=== PATIENT | male | born 1940 | race Caucasian/White ===

== ENCOUNTER → 2017-08-30 13:57 | Outpatient (CLI) | payer MEDICARE, OTHER, SELFPAY ==
[2017-08-30 15:43] LABS: Hematocrit 46.5 % (40-54); Hemoglobin 15.8 g/dl (13.0-16.5); Mean Corpuscular Volume 88.2 fL (80-94); Mean Platelet Vol. 10.4 fl (6.2-12.0); Platelet Count 167 K/mm3 (150-450); RBC Distribution Width CV 13.2 % (11.6-14.6); RBC Distribution Width SD 43.1 fl (35.1-43.9); Red Blood Count 5.27 M/mm3 (4.6-6.2); White Blood Count 5.6 K/mm3 (4.4-11.0)
[2017-08-30 16:00] LABS: ALB/GLOB Ratio 1.2 RATIO (0.9-2.4); AST(SGOT) 22 U/L (15-37); Alanine Aminotransfer ALT/SGPT 20 U/L (16-61); Albumin, Serum 3.8 g/dL (3.2-5.0); Alkaline Phosphatase 96 U/L (45-117); Anion Gap 6 (5-15); BUN 18 mg/dL (7-18); Calcium,Total 8.4 mg/dL (8.5-10.1); Chloride 106 mmol/L (98-107); EST Glomerular Filtration Rate 77 mL/min (>60); Est Glom Filt Rate - Afr Amer 93 mL/min (>60); Globulin 3.1 g/dL (2.2-4.2); Glucose 80 mg/dL (74-106); Magnesium 2.2 mg/dL (1.6-2.6); Potassium 4.3 mmol/L (3.5-5.1); Protein, Total 6.9 g/dL (6.4-8.2); Sodium Level 140 mmol/L (136-145); T4 Free Direct 0.98 ng/dL (0.76-1.46); Thyroid Stim Hormone (TSH) 5.96 uIU/mL (0.358-3.74)
[2017-08-30 16:31] LABS: Scan Indicated on CBC? Y/N NO
== END ==
PROVIDERS: Family Provider Family Medicine; PCP Family Medicine; Visit Provider Family Medicine
DX: I48.0 Paroxysmal atrial fibrillation (principal); R94.6 Abnormal results of thyroid function studies
CPT/HCPCS: 36415; 80053; 83735; 84439; 84443; 85027

== ENCOUNTER → 2017-08-31 13:56 | Outpatient (CLI) | payer MEDICARE, OTHER, SELFPAY ==
--- NOTE | 2017-08-31 13:59 | RAD_ITS ---
STUDY: X-RAY - LEFT KNEE REASON FOR EXAM: Male, 77 years old. Left knee pain TECHNIQUE: 3 view(s) of the knee. Weightbearing views COMPARISON: None. FINDINGS: Complete joint space loss of the medial compartment with moderate to severe osteophytosis. Remaining compartments demonstrate moderate osteophytosis. No significant soft tissue swelling. No acute fracture. RAD/Knee 3 Views IMPRESSION: Severe degenerative changes of the knee Electronically Signed: Oswaldo Griffin DO at 9:12 EDT Tel , Service support ,
--- NOTE | 2017-08-31 13:59 | RAD_ITS ---
STUDY: X-RAY - RIGHT KNEE REASON FOR EXAM: Male, 77 years old. Bilateral knee pain TECHNIQUE: 3 view(s) of the knee. With weightbearing COMPARISON: None. FINDINGS: Normal visualized distal femur. Normal visualized proximal tibia and fibula. Normal proximal tibiofibular articulation. 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 There is moderate degenerative arthrosis of the lateral femorotibial compartment with moderate joint space narrowing. There is mild degenerative arthrosis of the patellofemoral articulation. The soft tissue structures are unremarkable. RAD/Knee 3 Views IMPRESSION: Complete joint space loss of the medial compartment with [id number] contact. Tricompartmental degenerative changes Electronically Signed: Oswaldo Griffin DO at 9:11 EDT Tel , Service support ,
== END ==
PROVIDERS: Family Provider Family Medicine; PCP Family Medicine; Visit Provider Family Medicine
DX: M25.561 Pain in right knee (principal); M25.562 Pain in left knee
CPT/HCPCS: 73562

== ENCOUNTER → 2018-04-12 09:18 | Outpatient (CLI) | payer MEDICARE, OTHER, SELFPAY ==
[2018-04-12 09:22] LABS: Bacteria 0 SEEN /hpf (None Seen); Mucous, Urine 0 SEEN /hpf (<or=2+); Red Blood Cells-Urine 0 SEEN /hpf (0-5); White Blood Cells 0 SEEN /hpf (0-5)
[2018-04-12 10:38] LABS: Absolute Lymphocyte Count 0.99 X10^3/ul (0.83-4.51); Absolute Neutrophil Count 4.1 X10^3/uL (2.0-7.7); Basophil# 0.01 X10^3/uL; Basophil% 0.2 % (0-1); Eosinophil# 0.11 X10^3/uL; Eosinophils% 1.9 % (0-5); Hematocrit 46.9 % (40-54); Hemoglobin 15.9 g/dl (13.0-16.5); Lymphocyte # 0.99 X10^3/ul (4.0); Lymphocyte % 17.1 % (19-41); Mean Corp Hgb Conc 33.9 g/gl (32-36); Mean Corpuscular Hgb 30.3 pg (27.0-32.0); Mean Corpuscular Volume 89.3 fL (80-94); Mean Platelet Vol. 10.4 fl (6.2-12.0); Monocyte# 0.59 X10^3/uL; Monocyte% 10.2 % (0-10); Neutrophil # 4.06 X10^3/uL (2.7-7.7); Neutrophil % 70.1 % (47-70); Platelet Count 144 K/mm3 (150-450); RBC Distribution Width CV 13.5 % (11.6-14.6); RBC Distribution Width SD 44.4 fl (35.1-43.9); Red Blood Count 5.25 M/mm3 (4.6-6.2); White Blood Count 5.8 K/mm3 (4.4-11.0)
[2018-04-12 10:43] LABS: POSITIVE COUNT NO; POSITIVE DIFFERENTIAL NO; POSITIVE MORPHOLOGY NO
[2018-04-12 11:20] LABS: ALB/GLOB Ratio 1.5 RATIO (0.9-2.4); AST(SGOT) 16 U/L (15-37); Alanine Aminotransfer ALT/SGPT 19 U/L (16-61); Albumin, Serum 3.8 g/dL (3.2-5.0); Alkaline Phosphatase 84 U/L (45-117); Anion Gap 5 (5-15); BUN 15 mg/dL (7-18); BUN/Creat Ratio 16.8 RATIO (10-20); Calcium,Total 8.4 mg/dL (8.5-10.1); Chloride 106 mmol/L (98-107); Creatinine, Serum 0.89 mg/dL (0.70-1.30); EST Glomerular Filtration Rate 88 mL/min (>60); Est Glom Filt Rate - Afr Amer 106 mL/min (>60); Globulin 2.5 g/dL (2.2-4.2); Glucose 79 mg/dL (74-106); Potassium 4.1 mmol/L (3.5-5.1); Protein, Total 6.3 g/dL (6.4-8.2); Sodium Level 140 mmol/L (136-145); T4 Free Direct 1.11 ng/dL (0.76-1.46)
[2018-04-12 12:54] LABS: Color, Urine Yellow (Yellow); Glucose, Dipstick Normal (Normal); Ketone-Dipstick Negative (Negative); Leukocyte Esterase-Dipstick Negative /ul (Negative); Nitrite-Dipstick Negative (Negative); Occult Blood-Urine Negative /ul (Negative); Protein-Dipstick Negative (Negative); Urine Bilirubin Dipstick Negative (Negative); Urine Clarity Clear (Clear); Urine Urobilinogen Normal (Normal)
[2018-04-12 13:00] LABS: Squamous Epithelial Cells - UA 0-5 SEEN /hpf (0-5)
--- OUTSIDE RECORDS SUMMARY | 2018-05-24 22:55 | XMS RPT_ITS ---
:1940 Author Organization [facility] Care Team Providers Name Role Phone NO, DOCTOR ON Consulting Unavailable NO, DOCTOR ON Referring Unavailable JOHANNA SORENSEN DO Primary Care Unavailable JOHANNA SORENSEN DO Attending Unavailable JOHANNA SORENSEN DO Admitting Unavailable Bhavin Vilchis Attending Unavailable Bhavin Vilchis Primary Care Unavailable Bhavin Vilchis Attending Unavailable Bhavin Vilchis Referring Unavailable Bhavin Vilchis Primary Care Unavailable Javy Birmingham Attending Unavailable Bhavin Vilchis Referring Unavailable Mercedes Nelson Attending Unavailable Bhavin Vilchis Attending Unavailable Bhavin Vilchis Primary Care Unavailable PROBLEMS PROBLEMS DATE TYPE CONDITION / CODE ATTENDING STATUS SOURCE 02/22/2018 Unknown Z98.890 - Other Valencia, Javy Active [facility] specified Community postprocedural Hospital states / Repository Z98.890(ICD-10) 02/22/2018 Unknown I10 - Essential Valencia, Mathews Active [facility] (primary) Community hypertension / Hospital I10(ICD-10) Repository 02/22/2018 Unknown I48.0 - Paroxysmal Valencia, Javy Active [facility] atrial fibrillation Community / I48.0(ICD-10) Hospital Repository 02/22/2018 Unknown E78.5 - Valencia, Javy Active [facility] Hyperlipidemia, Community unspecified / Hospital E78.5(ICD-10) Repository 08/31/2017 Unknown M25.561 - Pain in Bhavin Vilchis Active [facility] right knee / E Community M25.561(ICD-10) Hospital Repository PROCEDURES PROCEDURES No Procedure Records FoundRESULTS RESULTS CBC W/DIFF, AUTOMATED Collected: 04/12/2018 Status: F Source: [facility] 9:19 AM [facility] REPOSITORY TYPE CODE TESTS RESULT OUT OF RANGE REFERENCE UNITS LAB L100.1000 4.4-11.0 K/mm3 Normal WBC 5.8 LAB L100.1200 4.6-6.2 M/mm3 Normal RBC 5.25 LAB L100.1300 13.0-16.5 g/dl Normal HGB 15.9 LAB L100.1400 40-54 % Normal HCT 46.9 LAB L100.1500 80-94 fL Normal MCV 89.3 LAB L100.1600 27.0-32.0 pg Normal MCH 30.3 LAB L100.1700 32-36 g/gl Normal MCHC 33.9 LAB L100.1810 11.6-14.6 % Normal RDW CV 13.5 LAB L100.1820 35.1-43.9 fl High RDW SD 44.4 LAB L100.1900 150-450 K/mm3 Low PLT 144 LAB L100.2000 6.2-12.0 fl Normal MPV 10.4 LAB L100.2100 47-70 % High NEUT% 70.1 LAB L100.2200 19-41 % Low LY% 17.1 LAB L100.2300 0-10 % High MONO% 10.2 LAB L100.2400 0-5 % Normal EO% 1.9 LAB L100.2500 0-1 % Normal BASO% 0.2 LAB L100.2550 0.0-0.9 % Normal IM GRAN % 0.500 Result Comment: IG% - Immature Granulocytes (promyelocytes, myelocytes and metamyelocytes) > 1% indicates that a LEFT SHIFT is Present. LAB L100.2620 2.0-7.7 X10 3/uL Normal Absolute Neut 4.1 LAB L100.2720 0.83-4.51 X10 3/ul Normal Absolute Lymph 0.99 Performed By: #### L100.0100, L500.4050, L501.9520, L506.0400 #### [facility] [address] [place], [address] COMPREHENSIVE METABOLIC Collected: 04/12/2018 Status: F Source: [facility] 9:19 AM [facility] [place] TYPE CODE TESTS RESULT OUT OF RANGE REFERENCE UNITS LAB L501.0100 74-106 mg/dL Normal GLU 79 Result Comment: Please note revised GLUCOSE reference range effective 2017. LAB L501.1000 7-18 mg/dL Normal BUN 15 LAB L501.1100 0.70-1.30 mg/dL Normal CREAT,SERUM 0.89 Result Comment: The validity of the calculated GFR AND GFRAA in patients over 70 years has not been determined. Clinical correlation is essential. LAB L501.1110 >60 mL/min Normal EST GFR 88 Result Comment: Non- GFR Calc LAB L501.1115 >60 mL/min Normal EST GFR - AA 106 Result Comment: GFR Calc LAB L501.1300 10-20 RATIO Normal BUN/CRE 16.8 LAB L501.1500 6.4-8.2 g/dL Low T PROT 6.3 LAB L501.1800 3.2-5.0 g/dL Normal ALB 3.8 LAB L501.1950 2.2-4.2 g/dL Normal GLOB 2.5 LAB L501.2000 0.9-2.4 RATIO Normal A/G 1.5 LAB L501.2200 8.5-10.1 mg/dL Low CA 8.4 LAB L501.4100 15-37 U/L Normal AST 16 LAB L501.4305 45-117 U/L Normal ALK P 84 LAB L501.4405 16-61 U/L Normal ALT 19 LAB L501.4600 0.20-1.00 mg/dL T Normal BILI 0.70 LAB L501.5300 136-145 mmol/L NA Normal 140 LAB L501.5600 3.5-5.1 mmol/L K Normal 4.1 LAB L501.5900 98-107 mmol/L CL Normal 106 LAB L501.6100 21.0-32.0 mmol/L Normal CO2 29.0 LAB L501.6200 5-15 Normal GAP 5 Performed By: #### L100.0100, L500.4050, L501.9520, L506.0400 #### [facility] [address] [place], [place], [id number] THYROID STIM HORMONE Collected: 04/12/2018 Status: F Source: [facility] ([facility]) 9:19 AM [facility] [place] TYPE CODE TESTS RESULT OUT OF RANGE REFERENCE UNITS LAB L501.9520 0.358-3.74 uIU/mL Normal TSH 2.60 Performed By: #### L100.0100, L500.4050, L501.9520, L506.0400 #### [facility] [address] [place], [place], [id number] T4 FREE DIRECT Collected: 04/12/2018 Status: F Source: [facility] 9:19 AM [facility] [place] TYPE CODE TESTS RESULT OUT OF RANGE REFERENCE UNITS LAB L506.0400 0.76-1.46 ng/dL Normal T4 FREE 1.11 DIRECT Performed By: #### L100.0100, L500.4050, L501.9520, L506.0400 #### [facility] [address] [place], [place], [address] URINALYSIS, COMPLETE Collected: 04/12/2018 Status: F Source: [facility] 9:19 AM [facility] [place] Order Comment: How was Urine Obtained? CLEAN CATCH TYPE CODE TESTS RESULT OUT OF RANGE REFERENCE UNITS LAB L400.3000 Yellow COLOR Normal Yellow LAB L400.3050 Clear Normal CLARITY Clear LAB L400.3200 Normal mg/dl Normal GLUCOSE, UR Normal LAB L400.3300 Negative mg/dL Normal BILIRUBIN URINE Negative LAB L400.3400 Negative mg/dl Normal KETONE UR Negative LAB L400.3465 1.002-1.030 Normal SP.GR. DIPSTX 1.010 LAB L400.3550 5.0 - 8.0 pH UR Normal 8.0 LAB L400.3600 Negative mg/dl PROT Normal DIPSTX Negative LAB L400.3700 Normal mg/dl Normal UROBILI Normal LAB L400.3750 Negative Normal NITRITE UR Negative LAB L400.3780 Negative /ul Normal OCCULT BLOOD-UR Negative LAB L400.3800 Negative /ul LEUK Normal ESTERASE Negative LAB L400.4050 0-5 /hpf WBC 0 Normal SEEN LAB L400.4100 0-5 /hpf 0 Normal RBC-UA SEEN LAB L400.4150 0-5 /hpf SQUAM Normal EPI 0-5 SEEN LAB L400.4300 None Seen /hpf 0 Normal BACTERIA SEEN LAB L400.4350 <or=2+ /hpf 0 Normal MUCUS, URINE SEEN Performed By: #### L400.0001 #### [facility] [place], [address] CARDIOLOGY VISIT Observed: 02/22/2018 Status: F Source: [facility] REPORT 2:00 PM [facility] [place] [facility] [address] [facility] [place] [address] OFFICE VISIT Date of Service: 02/22/18 MR#: [id number] Acct: [id number] Name: PROSPER GOULD Rep #: [id number] : 1940 Provider: Javy Birmingham MD Age/Sex: 78/M Location: [facility] Status: Signed [facility] Chief Complaint: Follow-up visit. Details: PROSPER GOULD, is a 78 M who presents to the office today for a follow-up visit. He is a gentleman with a history of hypertension, paroxysmal atrial fibrillation flutter who had a flutter ablation over 13 years ago. He returns for routine follow-up visit he denies any chest pain or shortness breath or paroxysmal nocturnal dyspnea or pedal edema. His been compliant with his medications. He has had no neck arm or jaw discomfort suggest angina no dizziness or diaphoresis no near syncope or syncope. He is also not noticed any more of the palpitations. His physical exam today demonstrates clear lung yusuf regular rate and rhythm and no pedal edema. Intake Vital Signs02/22/18 Height 6 ft 02/22/18 Weight: 215 lb 02/22/18 Body Mass Index (BMI) 29.1 02/22/18 Pulse Source Monitor Intake Visit Reasons: 1 Y FU (pt r/s from -) Urogynaecologist Required: No Accompanied by: none Is patient in pain?: No Allergies antihistamines Allergy (Uncoded 02/07/18 13:45) unknown demerol Allergy (Uncoded 02/07/18 13:45) unknown Medications aspirin 325 mg tablet 325 mg PO DAILY 02/07/18 [History Confirmed 02/22/18] saw palmetto 1,000 mg capsule 1,000 mg PO DAILY 02/07/18 [History Confirmed 02/22/18] atenolol 25 mg tablet 25 mg PO DAILY 02/22/18 [History Confirmed 02/22/18] multivitamin tablet 1 tab PO DAILY 02/22/18 [History Confirmed 02/22/18] [facility] Medical History Non-rheumatic tricuspid valve insufficiency (Chronic) Patent foramen ovale (Chronic) Essential (primary) hypertension (Chronic) Paroxysmal atrial fibrillation (Chronic) HLD (hyperlipidemia) (Chronic) History of supraventricular tachycardia (Chronic) History of cardiac dysrhythmia (Inactive) Surgical History History of radiofrequency ablation procedure for cardiac arrhythmia (Resolved 04/30/03) H/O knee surgery (Resolved) History of cardioversion (Resolved 05/25/01) History of herniorrhaphy (Resolved) History of orchiectomy (Resolved) Family History Son Diabetes Daughter Diabetes Father Alcoholism Mother Cancer Brother Myocardial infarction Social History Smoking Status: Former smoker alcohol intake: current substance use type: does not use ROS Const Const: Negative for fatigue, weakness, night sweats, excessive sweating, frequent falls, headache(s) or daytime sleepiness Eyes Eyes: Negative for loss of peripheral vision, transient loss of vision, blind spots, double vision or blurry vision ENT ENT: Negative for headache(s), dizziness, balance problems, Nosebleed/epistaxis, tongue swelling or lip swelling Cardio Chest Pain: No Palpitations: No Edema: None Muscle aches with walking: None Resp Respiratory: Positive for SOB with activity; negative for SOB at rest, SOB orthopnea\SOB lying down, Cough or paroxysmal nocturnal dyspnea GI GI: Negative nausea, vomiting, heartburn, black,tarry stools or bright, red blood in stools : Negative for hematuria Musc Musc: Negative for balance problems, muscle aches/ myalgia, muscle weakness or joint pain Skin Skin: Negative non-healing lesions, unusual bruising or rash Neuro Neuro: Negative for weakness, frequent falls, headache(s), double vision, dizziness, lightheadedness, orthostatic symptoms, blurry vision or lack of coordination Babar Hematologic/Lymphatic: Negative for easy bruising or easy bleeding Endo Endo: Negative for fatigue, excessive sweating, cold intolerance, heat intolerance, increased thirst/drinking or hair loss Psych Psych: Negative for anxiety or depression Allergy Allergy/Immunology: Negative for throat swelling, Negative for tongue swelling, Negative for hives, Negative for rash, Negative for lip swelling Cardiology Exam Const Appearance: cooperative, healthy appearing, well developed, well groomed and no acute distress Nutritional Appearance: well nourished and average body habitus Orientation: alert, awake and oriented x3 Head Head: normal to inspection, normocephalic and atraumatic Ears: hearing grossly normal bilaterally and external ears normal Nose: external nose normal, nasal mucous membranes and turbinates normal, nares normal, septum normal, no nasal discharge Face and Sinus: face symmetric Mouth: oral mucosae normal, tongue normal, oropharynx normal and moist mucous membranes Teeth and gingiva: dentition normal Throat: posterior oropharynx normal, tonsils normal and uvula midline Eyes General: appearance normal, both eyes and all related structures Eyelids: eyelids normal Conjunctivae: conjunctivae normal Pupils: PERRL, normal by confrontation and accommodation normal EOM: EOM intact bilaterally Neck Neck: normal visual inspection, trachea midline and no JVD JVD: +5 Carotids: normal carotid upstroke and bounding pulses Chest Chest inspection: normal inspection of the chest, symmetric chest movement and normal respiratory effort Auscultation: Bilateral: Clear to Auscultation Cardio Palpation: normal PMI Rate: regular rate Rhythm: regular rhythm Heart sounds: S1 normal, S2 normal and normal, physiologic split S2; negative rub, gallop or murmur GI GI: normal to inspection, soft, no hepatosplenomegaly and bowel sounds present Neuro General: alert, awake, oriented x3, no focal sensory deficit, gait normal and moves all extremities Skin Skin: no rashes or lesions noted Extremities Pulses: Normal: Right Femoral Pulse, Left Femoral Pulse, Right Dorsalis Pedis Pulse, Left Dorsalis Pedis Pulse, Right Posterior Tibial Pulse, Left Posterior Tibial Pulse, Right Radial Pulse, Left Radial Pulse Lower Extremity Edema: None: Bilateral Musculoskel Musculoskeletal: No joint tenderness Psych Psychological: normal affect Assessment AND Plan 1. 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 He has not had any recurrence of the above. He remains on the atenolol at the 25 mg dose. 2. Essential (primary) hypertension I10 Plan He does have a history of hypertension for which she is taking atenolol. It has been under fair control. No changes will be made at this time. His last echocardiogram demonstrated ejection fraction of 65% with normal pulmonary pressures. No significant valvular abnormalities were noted. 3. Paroxysmal atrial fibrillation I48.0 Plan He does have a history of paroxysmal atrial fibrillation is maintaining sinus rhythm. He has not had an episode of the above and years. It is therefore prudent for him to continue on the aspirin only. He does have evidence of mild mitral valve thickening and mild regurgitation. No changes will be made with regard to the above. 4. HLD (hyperlipidemia) E78.5 Plan He does have a history of hyperlipidemia which is being managed with dietary manipulation. He will once again continue and routine lipid profiles will be obtained. 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) Coding Level of Care Code Off vis,est,level 3 Diagnoses History of radiofrequency ablation procedure for cardiac arrhythmia Z98.890 Essential (primary) hypertension I10 Paroxysmal atrial fibrillation I48.0 HLD (hyperlipidemia) E78.5 Coding Level of Care Code Off vis,est,level 3 Diagnoses History of radiofrequency ablation procedure for cardiac arrhythmia Z98.890 Essential (primary) hypertension I10 Paroxysmal atrial fibrillation I48.0 HLD (hyperlipidemia) E78.5 02/22/18 1400 <Electronically signed by Javy Birmingham MD> Date Javy Birmingham MD Cosigner Signature: Date (if applicable) CC: Bhavin Vilchis MD EMERGENCY REPORT Observed: 10/21/2017 Status: F [facility] [place] [place] EMERGENCY ROOM REPORT NAME ACCOUNT SEX AGE ADMIT DISCHARGE PT MED. RECORD# NUMBER DATE DATE TYPE BRYANNA [id number] Kimberly 77 10/19/17 10/19/17 3 PROSPER Sorenson [id number] ROOM: ER DATE OF : 1940 DICTATING PHYSICIAN: Johanna Sorensen TIME SEEN: 2:45 p.m. CHIEF COMPLAINT/HISTORY OF PRESENT ILLNESS: This is a 77-year-old white male complaining of a 1 cm linear laceration to the left middle finger. He got that caught today in a dump truck tailgate lacerating it. He does not feel that it is broken, he just needs stitches. His last tetanus has been greater than 5 years ago. PAST MEDICAL HISTORY: Atrial fibrillation in the past but he did have an ablation and has not had a problem since. He was admitted for sepsis here 2 years ago. ALLERGIES: Demerol. SOCIAL HISTORY: He is not a smoker, does admit to occasional alcohol use. He lives at home with his family. REVIEW OF SYSTEMS: Denies any chest pain, shortness of breath, cough, sputum, wheezing, abdominal pain, nausea, vomiting, diarrhea, constipation, melena, hematochezia, headache, numbness, unsteady gait, weakness, neck or back pain. Does complain of laceration to the left middle finger. Further review of systems is negative. PHYSICAL EXAMINATION: Vital Signs: Blood pressure 151/89, pulse 66, respirations 16, temperature 97.9, pulse oximetry 94%, weight 205 pounds. Patient is alert and oriented x 3. He presently appears in no acute distress. He is pleasant and cooperative. HEENT: Head appears atraumatic. Pupils are equal and reactive to light. Red reflex is intact bilaterally. Extraocular muscles are intact. No conjunctival injection. No scleral icterus or lid edema. Nose exhibits no rhinorrhea or epistaxis. Mouth: Mucous membranes are moist. No pharyngeal erythema. Uvula is midline and elevates. Neck is supple. Trachea is midline. No JVD or lymphadenopathy. No posterior cervical tenderness. No nuchal rigidity. Lungs are clear to auscultation in all lung yusuf. No adventitious sounds noted. No accessory muscle use. CVS: Heart rate and rhythm regular without murmur. Abdomen is soft and nontender with normoactive bowel sounds x4 quadrants. No guarding or rigidity. No rebound. No palpable abdominal mass. No hepatosplenomegaly. Back exhibits no midline or paraspinal region tenderness. No increased paraspinal muscle rigidity. Negative Felipe's sign. Extremities: No edema or cyanosis. Peripheral pulses are intact. No Page 1 of 2 PROSPER GOULD Emergency Room Report motor or sensory deficits noted. 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 I do note a 1 cm linear laceration to the volar medial aspect of the left middle finger near the DIP joint. There is no bony tenderness. 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 The laceration is gaping. I explored it, there is on evidence of any foreign body. No tendon involvement. He is able to flex and extend all digits of the left hand well against resistance. He has good sensation to light touch. Capillary refill is less than 2 seconds. EMERGENCY DEPARTMENT COURSE AND TREATMENT: The wound site was cleansed with a dilute Betadine solution. Local anesthesia of 1% plain lidocaine. The wound was then explored. No bone or tendon involvement. No foreign body. The wound was then copiously irrigated with sterile normal saline and closed with a total of 3 simple interrupted sutures of 4-0 Vicryl. The patient tolerated the procedure well. He is to keep the wound site clean and dry. He was updated on his tetanus, Td 0.5 mL IM. DIAGNOSIS: One centimeter linear laceration left middle finger, repaired. PLAN/DISPOSITION: He does not have a family physician so I am going to refer him to [facility] for a wound recheck in 3 days. If his symptoms become worse or any problems develop return to the emergency department. Patient was discharged in a clinically stable condition. Nurses notes were reviewed. Dictated By: Johanna Sorensen DO 10/19/17 15:03 JOB #: [id number] Transcribed By: ovidio 10/19/17 19:34 Electronically signed by: E-Sign: Dr. Johanna Sorensen D.O. 10/21/17 10:06 Page 2 of 2 PROSPER GOULD Emergency Room Report KNEE 3 VIEWS Observed: 08/31/2017 Status: F Source: [facility] 2:00 PM [facility] [place] [facility] Imaging Services [address] [place] [address] Knee 3 Views MR#: [id number] Acct: [id number] Name: PROSPER GOULD Rep #: [id number] : 1940 M 77 From: Oswaldo Griffin DO PCP: Bhavin Vilchis MD Status: REG CLI Study: Knee 3 Views Date of Exam: 08/31/17 Exam# [id number] Ordering Dr: Bhavin Vilchis MD STUDY: X-RAY - RIGHT KNEE REASON FOR EXAM: Male, 77 years old. Bilateral knee pain TECHNIQUE: 3 view(s) of the knee. With weightbearing COMPARISON: None. FINDINGS: Normal visualized distal femur. Normal visualized proximal tibia and fibula. Normal proximal tibiofibular articulation. 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 There is moderate degenerative arthrosis of the lateral femorotibial compartment with moderate joint space narrowing. There is mild degenerative arthrosis of the patellofemoral articulation. The soft tissue structures are unremarkable. RAD/Knee 3 Views IMPRESSION: Complete joint space loss of the medial compartment with [id number]-gs-[id number] contact. Tricompartmental degenerative changes Electronically Signed: Oswaldo Griffin DO at 9:11 EDT Tel , Service support , CC: Bhavin Vilchis MD Transmitter Tester: Signed KNEE 3 VIEWS Observed: 08/31/2017 Status: F Source: [facility] 2:00 PM [facility] [place] [facility] Imaging Services [address] [place] [address] Knee 3 Views MR#: [id number] Acct: [id number] Name: PROSPER GOULD Rep #: [id number] : 1940 M 77 From: Oswaldo Griffin DO PCP: Bhavin Vilchis MD Status: REG CLI Study: Knee 3 Views Date of Exam: 08/31/17 Exam# [id number] Ordering Dr: Bhavin Vilchis MD STUDY: X-RAY - LEFT KNEE REASON FOR EXAM: Male, 77 years old. Left knee pain TECHNIQUE: 3 view(s) of the knee. Weightbearing views COMPARISON: None. FINDINGS: Complete joint space loss of the medial compartment with moderate to severe osteophytosis. Remaining compartments demonstrate moderate osteophytosis. No significant soft tissue swelling. No acute fracture. RAD/Knee 3 Views IMPRESSION: Severe degenerative changes of the knee Electronically Signed: Oswaldo Griffin DO at 9:12 EDT Tel , Service support , CC: Bhavin Vilchis MD Transmitter Tester: Signed COMPREHENSIVE METABOLIC Collected: 08/30/2017 Status: F Source: [facility] PROFIL 2:04 PM [facility] [place] Order Comment: Order Date: 08/30/17 Order Info: [id number] - CMP Order Info: [id number] - MG Order Info: [id number] - TSH Order Info: 3024-7 - T4F TYPE CODE TESTS RESULT OUT OF RANGE REFERENCE UNITS LAB L501.0100 74-106 mg/dL Normal GLU 80 Result Comment: Please note revised GLUCOSE reference range effective 2017. LAB L501.1000 7-18 mg/dL Normal BUN 18 LAB L501.1100 0.70-1.30 mg/dL Normal CREAT,SERUM 1.00 Result Comment: The validity of the calculated GFR AND GFRAA in patients over 70 years has not been determined. Clinical correlation is essential. LAB L501.1110 >60 mL/min Normal EST GFR 77 Result Comment: Non- GFR Calc LAB L501.1115 >60 mL/min Normal EST GFR - AA 93 Result Comment: GFR Calc LAB L501.1300 10-20 RATIO Normal BUN/CRE 18.0 LAB L501.1500 6.4-8.2 g/dL T Normal PROT 6.9 LAB L501.1800 3.2-5.0 g/dL Normal ALB 3.8 LAB L501.1950 2.2-4.2 g/dL Normal GLOB 3.1 LAB L501.2000 0.9-2.4 RATIO Normal A/G 1.2 LAB L501.2200 8.5-10.1 mg/dL Low CA 8.4 LAB L501.4100 15-37 U/L Normal AST 22 LAB L501.4305 45-117 U/L Normal ALK P 96 LAB L501.4405 16-61 U/L Normal ALT 20 LAB L501.4600 0.20-1.00 mg/dL T Normal BILI 0.50 LAB L501.5300 136-145 mmol/L NA Normal 140 LAB L501.5600 3.5-5.1 mmol/L K Normal 4.3 LAB L501.5900 98-107 mmol/L CL Normal 106 LAB L501.6100 21.0-32.0 mmol/L Normal CO2 28.0 LAB L501.6200 5-15 Normal GAP 6 Performed By: #### L500.4050, L501.5200, L501.9520, L506.0400, L100.0500 #### [facility] [address] [place], [address] MAGNESIUM Collected: 08/30/2017 Status: F Source: [facility] 2:04 PM [facility] [place] Order Comment: Order Date: 08/30/17 Order Info: [id number] - CMP Order Info: [id number] - MG Order Info: [id number] - TSH Order Info: 3024-7 - T4F TYPE CODE TESTS RESULT OUT OF RANGE REFERENCE UNITS LAB L501.5200 1.6-2.6 mg/dL Normal MG 2.2 Performed By: #### L500.4050, L501.5200, L501.9520, L506.0400, L100.0500 #### [facility] [address] [place], [place], [address] THYROID STIM HORMONE Collected: 08/30/2017 Status: F Source: [facility] (TSH) 2:04 PM [facility] [place] Order Comment: Order Date: 08/30/17 Order Info: [id number] - CMP Order Info: [id number] - MG Order Info: 3015-3 - TSH Order Info: 302-7 - T4F TYPE CODE TESTS RESULT OUT OF RANGE REFERENCE UNITS LAB L501.9520 0.358-3.74 uIU/mL High TSH 5.96 Performed By: #### L500.4050, L501.5200, L501.9520, L506.0400, L100.0500 #### [facility] [address] [place], [place], [id number] T4 FREE DIRECT Collected: 08/30/2017 Status: F Source: [facility] 2:04 PM [facility] REPOSITORY Order Comment: Order Date: 08/30/17 Order Info: [id number] - CMP Order Info: [id number] - MG Order Info: 3015-3 - TSH Order Info: 3024-7 - T4F TYPE CODE TESTS RESULT OUT OF RANGE REFERENCE UNITS LAB L506.0400 0.76-1.46 ng/dL Normal T4 FREE 0.98 DIRECT Performed By: #### L500.4050, L501.5200, L501.9520, L506.0400, L100.0500 #### [facility] [address] [place], [place], [id number] CBC-COMPLETE BLOOD CNT Collected: 08/30/2017 Status: F Source: [facility] NO DIFF 2:04 PM [facility] [place] Order Comment: Order Date: 08/30/17 Order Info: [id number] - CBC TYPE CODE TESTS RESULT OUT OF RANGE REFERENCE UNITS LAB L100.1000 4.4-11.0 K/mm3 Normal WBC 5.6 LAB L100.1200 4.6-6.2 M/mm3 Normal RBC 5.27 LAB L100.1300 13.0-16.5 g/dl Normal HGB 15.8 LAB L100.1400 40-54 % Normal HCT 46.5 LAB L100.1500 80-94 fL Normal MCV 88.2 LAB L100.1600 27.0-32.0 pg Normal MCH 30.0 LAB L100.1700 32-36 g/gl Normal MCHC 34.0 LAB L100.1810 11.6-14.6 % Normal RDW CV 13.2 LAB L100.1820 35.1-43.9 fl Normal RDW SD 43.1 LAB L100.1900 150-450 K/mm3 Normal PLT 167 LAB L100.2000 6.2-12.0 fl Normal MPV 10.4 Performed By: #### L500.4050, L501.5200, L501.9520, L506.0400, L100.0500 #### [facility] [address] 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 Allergy/775191262( 3(RXNORM) HEART RACE (Severity [facility] SNOMED CT) Modifier) Hospital (Qualifier Repository Value) Drug DEMEROL/93537044(RX Moderate Navid Pomerene Allergy/465005176( NORM) (Severity [facility] SNOMED CT) Modifier) [facility] (Qualifier Repository Value) Environmental 01/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 Repository 02/18/2018 [id number] Ambulatory BMSBuilding:B Rashad [address] [facility] Repository 10/19/2017/ [id number] JOHANNA SORENSEN Emergency Buildin[address] [place] [address] 8 DO oom: ERBed: I [facility] Repository 08/31/2017 [id number] Ambulatory [place] 8 [facility] ing:MTRAD Repository 08/30/2017 [id number] Ambulatory [place] 0 [facility] ing:MTLAB Repository PAYERS PAYERS ENCOUNTER GUARANTOR PAYER SUBSCRIBER SOURCE 04/12/2018 EDWARD J Primary EDWARD J [place] [id number] Insurance:MEDICARE HARTMANNDOB: [facility] [id number] Number: Repository [id number]: [phone] [id number] [phone] () Date:2018-03-15 04/12/2018 Secondary EDWARD J [place] Insurance:MEDICAL HARTMANNDOB: [facility] [id number] Hospital Number: Repository [id number] Date:[id number] [address]SR: 04/12/2018 Tertiary NOT GIVENUNK [place] Insurance:SELF PAY [facility] Number: Effective Repository Date:2018-03-15 02/22/2018 EDWARD J Primary EDWARD J [place] [id number] Insurance:MEDICARE HARTMANNDOB: [facility] [id number] Number: Repository [id number]: [phone] [id number] [phone] (HP) Date:2018-01-19 02/22/2018 Secondary EDWARD J [place] Insurance:MEDICAL HARTMANNDOB: [facility] [id number] Hospital Number: Repository [id number] Date:5032-54-91[address], [place] [address]VO: 02/22/2018 Tertiary NOT GIVENUNK [place] Insurance:SELF PAY [facility] Number: Effective Repository Date:2018-02-10 02/18/2018 EDWARD J Primary EDWARD J [place] [id number] Insurance:MEDICARE HARTMANNDOB: [facility] PART B [facility] [id number] Number: Repository [id number]: [phone] [id number] [phone] () Date:2018-02-18 02/18/2018 Secondary EDWARD J [place] Insurance:MEDICAL HARTMANNDOB: [facility] [id number] Hospital Number: Repository [id number] Date:[id number], [place] [address]RA: 02/18/2018 Tertiary NOT GIVENUNK [place] Insurance:SELF PAY [facility] Number: Effective Repository Date:2018-02-18 10/19/2017 EDWARD J Primary EDWARD J Navid Alfarone HARTMANNDOB: Insurance:MEDICARE HARTMANNDOB: [facility] [id number] [facility] [id number] [place] [address] RD Number: [address] [facility] [address] Repository [address] [place] [address] [id number] [address], [place] [id number]: Date:Plan Name: [id number] () 10/19/2017 Secondary EDWARD J Navid Alfarone Insurance:MEDICAL HARTMANNDOB: [facility] [id number] [place] [address] [address] [facility] [address] Repository Number: [address], [place] [id number] Date:Plan Name: 08/31/2017 Edward J Primary Edward J Rashad [id number] Insurance:MEDICARE HartmannDOB: [address] PART B [facility] [id number] Hospital [id number]: (330) Number: Repository [phone] () [id number] Date:2017-08-31 08/31/2017 Secondary Edward J [place] Insurance:MEDICAL ShorehammannB: [facility] [id number] Hospital Number: Repository [id number] Date:[id number] [address]ND: 08/31/2017 Tertiary NOT GIVENUNK [place] Insurance:SELF PAY [facility] Number: Effective Repository Date:2017-08-31 08/30/2017 Edward J Primary Edward J Rashad [id number] Insurance:MEDICARE [facility] Hospital[facility]: [address] PART B [facility] [id number] Hospital [id number]: [phone]) Number: Repository [phone] () [id number] Date:2017-08-30 08/30/2017 Secondary Edward J [place] Insurance:MEDICAL HartmannDOB: [facility] [id number] Hospital Number: Repository [id number] Date:[id number] [address]TM: 08/30/2017 Tertiary NOT GIVENUNK Rash[place] Insurance:SELF PAY [facility] Number: Effective Repository Date:2017-08-30
== END ==
PROVIDERS: Family Provider Family Medicine; PCP Family Medicine; Visit Provider Family Medicine
DX: I10 Essential (primary) hypertension (principal)
CPT/HCPCS: 36415; 80053; 81001; 84439; 84443; 85025

== ENCOUNTER → 2018-11-04 | Outpatient (CLI) | payer MEDICARE, OTHER, SELFPAY ==
[2018-11-01 09:03] VITALS: BMI 29.7
[2018-11-04 08:40] LABS: AST(SGOT) 17 U/L (15-37); Alanine Aminotransfer ALT/SGPT 17 U/L (16-61); Albumin, Serum 3.6 g/dL (3.2-5.0); Alkaline Phosphatase 86 U/L (45-117); Anion Gap 7 (5-15); BUN 17 mg/dL (7-18); Bilirubin, Direct 0.17 mg/dL (0.00-0.30); Calcium,Total 8.7 mg/dL (8.5-10.1); Chloride 105 mmol/L (98-107); Cholesterol 194 mg/dL (200); EST Glomerular Filtration Rate 77 mL/min (>60); Est Glom Filt Rate - Afr Amer 93 mL/min (>60); Globulin 2.8 g/dL (2.2-4.2); Glucose 82 mg/dL (74-106); High Density Lipoprotein 52 mg/dL; Potassium 4.1 mmol/L (3.5-5.1); Protein, Total 6.4 g/dL (6.4-8.2); Sodium Level 141 mmol/L (136-145); Triglycerides 96 mg/dL; Very Low Density Lipoprotein 19 mg/dL (5-40)
--- NOTE | 2018-11-04 12:09 | STRESSREP ---
Stress Test Report Pharmacologic myocardial perfusion stress test. 78-year-old man with a history of chest pain. Medications: Aspirin, atenolol, Multivite lisinopril. Stress protocol: Resting EKG demonstrates normal sinus rhythm with a rate of 60 bpm normal intervals are noted resting blood pressures 124/78 mmHg. 0.4 mg of regadenoson was infused per usual protocol followed by rapid intravenous saline flush injection continuous EKG monitoring was performed. The maximum heart rate was 88 bpm which was 62% of maximum predicted heart rate the maximum workload was 1 metabolic equivalent. At rest there were no ST or T wave changes noted suggest abnormal flow reserve perfusion nonspecific ST-T wave changes were noted. No clinical angina was noted. The resting blood pressure was 124/78 with a final blood pressure 132/78 mmHg. Myocardial perfusion protocol. 11.9 mCi of technetium 99m sestamibi was injected at rest. 0.4 mg of regadenoson was infused per usual protocol. Peak infusion 33.8 mCi of technetium 99m sestamibi was injected stress images were obtained stress and rest images were reconstructed in comparing the short axis vertical and horizontal long axis. Gated images were also obtained per Perfusion SPECT analysis: Review of the images demonstrate normal uptake of tracer noted in all areas of the myocardium. The resting images similarly demonstrate normal uptake of tracer noted in all areas of the myocardium. No areas of reversibility are noted suggest ischemia. No previous infarct is noted. Gated SPECT analysis: The gated ejection fraction is noted to be 70%. Conclusion: Normal pharmacologic myocardial perfusion stress test. Preserved ejection fraction.
== END | disposition home or self-care (01) ==
PROVIDERS: Family Provider Family Medicine; PCP Family Medicine; Referring Provider Internal Medicine Cardiovascular Disease; Visit Provider Internal Medicine Cardiovascular Disease
DX: R07.9 Chest pain, unspecified (principal); E78.5 Hyperlipidemia, unspecified
CPT/HCPCS: 36415; 78452; 80048; 80061; 80076; 93017; A9500; A4216; J2785

== ENCOUNTER → 2019-03-24 | Outpatient (CLI) | payer MEDICARE, OTHER, SELFPAY ==
[2018-11-01 09:03] VITALS: BMI 29.7
[2019-03-24 10:07] LABS: Basophil# 0.03 X10^3/uL; Basophil% 0.6 % (0-1); Eosinophil# 0.07 X10^3/uL; Eosinophils% 1.5 % (0-5); Hematocrit 48.2 % (40-54); Hemoglobin 15.9 g/dL (13.0-16.5); Mean Corpuscular Hgb 29.4 pg (27.0-32.0); Mean Corpuscular Volume 89.1 fL (80-94); Mean Platelet Vol. 10.3 fl (6.2-12.0); Monocyte# 0.52 X10^3/uL; Monocyte% 10.9 % (0-10); NRBC Flagged by Analyzer 0 % (0-5); Neutrophil # 3.04 X10^3/uL (2.7-7.7); Neutrophil % 63.6 % (47-70); Platelet Count 171 K/mm3 (150-450); RBC Distribution Width SD 42.2 fl (35.1-43.9); Red Blood Count 5.41 M/mm3 (4.6-6.2); White Blood Count 4.8 K/mm3 (4.4-11.0)
[2019-03-24 10:54] LABS: ALB/GLOB Ratio 1.2 RATIO (0.9-2.4); AST(SGOT) 19 U/L (15-37); Alanine Aminotransfer ALT/SGPT 24 U/L (16-61); Albumin, Serum 3.6 g/dL (3.2-5.0); Alkaline Phosphatase 84 U/L (45-117); Anion Gap 7 (5-15); BUN 16 mg/dL (7-18); BUN/Creat Ratio 15.2 RATIO (10-20); Calcium,Total 8.5 mg/dL (8.5-10.1); Chloride 106 mmol/L (98-107); Creatinine, Serum 1.05 mg/dL (0.70-1.30); EST Glomerular Filtration Rate 72 mL/min (>60); Est Glom Filt Rate - Afr Amer 87 mL/min (>60); Glucose 71 mg/dL (74-106); Protein, Total 6.6 g/dL (6.4-8.2); Sodium Level 141 mmol/L (136-145)
== END | disposition home or self-care (01) ==
LOC: MFPLAB 08:20
PROVIDERS: Family Provider Family Medicine; PCP Family Medicine; Referring Provider Family Medicine; Visit Provider Family Medicine
DX: I10 Essential (primary) hypertension (principal)
CPT/HCPCS: 36415; 80053; 84443; 85025

== ENCOUNTER → 2019-06-22 11:01 | Outpatient (CLI) | payer MEDICARE, OTHER, SELFPAY ==
[2018-11-01 09:03] VITALS: BMI 29.7
[2019-06-22 11:06] LABS: Bacteria 0 SEEN /hpf (None Seen); Mucous, Urine 0 SEEN /hpf (<or=2+); Red Blood Cells-Urine 0 SEEN /hpf (0-5); White Blood Cells 0 SEEN /hpf (0-5)
[2019-06-22 12:23] LABS: Absolute Neutrophil Count 3.8 X10^3/uL (2.0-7.7); Basophil# 0.05 X10^3/uL; Basophil% 0.8 % (0-1); Eosinophil# 0.16 X10^3/uL; Eosinophils% 2.7 % (0-5); Hematocrit 50.4 % (40-54); Hemoglobin 16.3 g/dL (13.0-16.5); Lymphocyte % 21.9 % (19-41); Mean Corp Hgb Conc 32.3 g/dL (32-36); Mean Corpuscular Hgb 28.3 pg (27.0-32.0); Mean Corpuscular Volume 87.5 fL (80-94); Mean Platelet Vol. 10.3 fl (6.2-12.0); Monocyte% 10.1 % (0-10); NRBC Flagged by Analyzer 0 % (0-5); Neutrophil # 3.77 X10^3/uL (2.7-7.7); Neutrophil % 63.7 % (47-70); Platelet Count 187 K/mm3 (150-450); RBC Distribution Width CV 12.8 % (11.6-14.6); RBC Distribution Width SD 40.7 fl (35.1-43.9); Red Blood Count 5.76 M/mm3 (4.6-6.2); White Blood Count 5.9 K/mm3 (4.4-11.0)
[2019-06-22 12:31] LABS: Prothrombin Time (Protime)PT. 13.1 SECONDS (11.7-14.9)
[2019-06-22 12:32] LABS: Partial Thromboplast Time 31.2 Seconds (24.1-36.2)
[2019-06-22 13:10] LABS: ALB/GLOB Ratio 1.1 RATIO (0.9-2.4); AST(SGOT) 16 U/L (15-37); Alanine Aminotransfer ALT/SGPT 21 U/L (16-61); Albumin, Serum 3.7 g/dL (3.2-5.0); Alkaline Phosphatase 105 U/L (45-117); Anion Gap 6 (5-15); BUN 16 mg/dL (7-18); Calcium,Total 9.1 mg/dL (8.5-10.1); Chloride 108 mmol/L (98-107); EST Glomerular Filtration Rate 76 mL/min (>60); Est Glom Filt Rate - Afr Amer 92 mL/min (>60); Globulin 3.3 g/dL (2.2-4.2); Glucose 87 mg/dL (74-106); Potassium 4.1 mmol/L (3.5-5.1); Sodium Level 138 mmol/L (136-145)
[2019-06-22 14:13] LABS: Color, Urine Yellow (Yellow); Glucose, Dipstick Normal (Normal); Ketone-Dipstick Negative (Negative); Leukocyte Esterase-Dipstick Negative /ul (Negative); Nitrite-Dipstick Negative (Negative); Occult Blood-Urine Negative /ul (Negative); Protein-Dipstick Negative (Negative); Urine Bilirubin Dipstick Negative (Negative); Urine Clarity Sl. Cloudy (Clear); Urine Urobilinogen Normal (Normal)
[2019-06-22 14:22] LABS: Squamous Epithelial Cells - UA 0-5 SEEN /hpf (0-5)
== END ==
PROVIDERS: PCP Family Medicine; Referring Provider Family Medicine; Visit Provider Family Medicine
DX: Z01.818 Encounter for other preprocedural examination (principal); I48.0 Paroxysmal atrial fibrillation
CPT/HCPCS: 36415; 80053; 81001; 85025; 85610; 85730

== ENCOUNTER → 2019-10-25 15:39 | Outpatient (CLI) | payer MEDICARE, OTHER, SELFPAY ==
[2018-11-01 09:03] VITALS: BMI 29.7
[2019-10-25 18:55] LABS: Magnesium 2.2 mg/dL (1.6-2.6); T4 Free Direct 1.07 ng/dL (0.76-1.46); Thyroid Stim Hormone (TSH) 4.89 uIU/mL (0.358-3.74)
== END ==
PROVIDERS: PCP Family Medicine; Referring Provider Family Medicine; Visit Provider Family Medicine
DX: R79.89 Other specified abnormal findings of blood chemistry (principal); I48.0 Paroxysmal atrial fibrillation
CPT/HCPCS: 36415; 83735; 84439; 84443

== ENCOUNTER → 2020-08-01 15:43 | Outpatient (CLI) | payer MEDICARE, OTHER, SELFPAY ==
[2019-11-02 10:14] VITALS: BMI 29.5
[2020-08-01 17:37] LABS: Absolute Lymphocyte Count 1.47 X10^3/uL (0.83-4.51); Absolute Neutrophil Count 2.7 X10^3/uL (2.0-7.7); Basophil# 0.02 X10^3/uL; Basophil% 0.4 % (0-1); Eosinophil# 0.01 X10^3/uL; Eosinophils% 0.2 % (0-5); Hematocrit 49.6 % (40-54); Lymphocyte # 1.47 X10^3/ul (4.0); Mean Corp Hgb Conc 32.3 g/dL (32-36); Mean Corpuscular Hgb 28.5 pg (27.0-32.0); Mean Corpuscular Volume 88.3 fL (80-94); Mean Platelet Vol. 10.5 fl (6.2-12.0); Monocyte# 0.51 X10^3/uL; Monocyte% 10.8 % (0-10); NRBC Flagged by Analyzer 0 % (0-5); Platelet Count 174 K/mm3 (150-450); RBC Distribution Width CV 13.6 % (11.6-14.6); RBC Distribution Width SD 43.7 fl (35.1-43.9); Red Blood Count 5.62 M/mm3 (4.6-6.2); White Blood Count 4.7 K/mm3 (4.4-11.0)
[2020-08-01 18:19] LABS: ALB/GLOB Ratio 1.2 RATIO (0.9-2.4); AST(SGOT) 19 U/L (15-37); Alanine Aminotransfer ALT/SGPT 25 U/L (16-61); Albumin, Serum 3.8 g/dL (3.2-5.0); Alkaline Phosphatase 96 U/L (45-117); Anion Gap 7 (5-15); BUN 19 mg/dL (7-18); BUN/Creat Ratio 18.8 RATIO (10-20); Calcium,Total 8.5 mg/dL (8.5-10.1); Chloride 105 mmol/L (98-107); Creatinine, Serum 1.01 mg/dL (0.70-1.30); EST Glomerular Filtration Rate 75 mL/min (>60); Est Glom Filt Rate - Afr Amer 91 mL/min (>60); Globulin 3.1 g/dL (2.2-4.2); Glucose 86 mg/dL (74-106); Magnesium 1.9 mg/dL (1.6-2.6); Potassium 4.2 mmol/L (3.5-5.1); Protein, Total 6.9 g/dL (6.4-8.2); Sodium Level 138 mmol/L (136-145); T4 Free Direct 1.07 ng/dL (0.76-1.46); Thyroid Stim Hormone (TSH) 3.55 uIU/mL (0.358-3.74)
[2020-08-05 20:39] LABS: Anti-Thyroglobulin AB < 1.0 IU/mL (0.0-0.9); Thyroglobulin, Serum Qt. 15.1 ng/mL (1.4-29.2); Thyroid Peroxidase AB < 9 IU/mL (0-34)
== END ==
PROVIDERS: PCP Family Medicine; Referring Provider Family Medicine; Visit Provider Family Medicine
DX: I48.0 Paroxysmal atrial fibrillation (principal); R79.89 Other specified abnormal findings of blood chemistry
CPT/HCPCS: 36415; 80053; 83735; 84432; 84439; 84443; 85025; 86376; 86800

== ENCOUNTER 2021-08-15 12:34 | Outpatient (CLI) | payer MEDICARE, OTHER, SELFPAY ==
--- NOTE | 2021-08-15 12:38 | RAD_ITS ---
EXAM: X-ray abdomen. HISTORY: ABDOMINAL PAIN TECHNIQUE: [XR Abdomen Series W/ Chest 1 View COMPARISON: None. LIMITATIONS: None. CHEST: A PA chest is provided. No infiltrates or effusions. Normal heart size. TUBES/LINES: None. BOWEL GAS PATTERN: Moderate stool in the right colon, minimal gas in the descending colon and rectosigmoid. Minimal nonspecific small bowel gas in the mid abdomen. No suspicious air-fluid levels or free air. CALCIFICATIONS: None. FREE AIR: None. BONES/SOFT TISSUES: Presumed old healed fracture of left posterior sixth rib, slightly thickened appearance without destruction. Mild dextroscoliosis of the midthoracic spine and mild levoscoliosis of the lumbar spine. Multilevel spondylosis. Vacuum disc at L4-L5. OTHER: Normal. IMPRESSION: No suspicious findings. No evidence of bowel obstruction. Moderate stool in the right colon. Degenerative spine changes. Electronically Signed: Mago Baxter MD at 21:06 EDT , RAD/Acute Abdomen Inc Chest
== END 2021-08-15 23:59 | disposition home or self-care (01) ==
LOC: MTRAD 12:36
PROVIDERS: PCP Family Medicine; Referring Provider Family Medicine; Visit Provider Family Medicine
DX: R10.9 Unspecified abdominal pain (principal)
CPT/HCPCS: 74022

== ENCOUNTER 2021-08-22 12:50 | Outpatient (CLI) | payer MEDICARE, OTHER, SELFPAY ==
--- NOTE | 2021-08-22 12:53 | ECHOD_ITS ---
Reason For Study: SOB Procedure This was a 2D Doppler, Color Flow transthoracic echocardiogram. Exam performed in department. Left Ventricle Normal LV size. Mild concentric left ventricular hypertrophy. Left ventricular systolic function is normal. The estimated ejection fraction is 60 %. No regional wall motion abnormalities noted. Right Ventricle Normal RV size. Normal systolic function. Atria Normal left atrium. Normal right atrium. Mitral Valve Normal mitral valve. Mild (1+) eccentric mitral valve insufficiency. Tricuspid Valve Normal tricuspid valve. Mild (1+) tricuspid valve insufficiency. Pulmonary artery systolic pressure is 28 mmHg. Aortic Valve Trisinus/trileaflet aortic valve. Pulmonic Valve Normal pulmonic valve. Great Vessels Normal aortic root. The pulmonary artery is normal size. Normal inferior vena cava. Pericardium/Pleural No pericardial effusion. MMode/2D Measurements & Calculations LVIDd: 4.1 cm IVSd: 1.3 cm Ao root diam: 3.4 cm LVIDs: 2.1 cm LVPWd: 1.3 cm LA dimension: 4.3 cm RVDd: 3.7 cm FS: 47.5 % LAV(MOD-bp): 56.8 ml LA A4 area: 20.3 cm2 RA A4 area: 17.3 cm2 LAV(MOD-bp) Indexed: 25.8 ml/m2 LAV(MOD-sp2): 54.7 ml LAV(MOD-sp4): 60.2 ml Doppler Measurements & Calculations MV E max jeny: 99.2 cm/sec Ao V2 max: 90.6 cm/sec AI end-d jeny: 310.6 cm/sec Ao max P.3 mmHg LV V1 max: 89.7 cm/sec PA V2 max: 85.6 cm/sec PI end-d jeny: 97.4 cm/sec LV V1 max P.2 mmHg TR max jeny: 246.5 cm/sec TR max P.4 mmHg ECHO/Echo Complete Interpretation Summary Normal LV size. Left ventricular systolic function is normal. The estimated ejection fraction is 60 %. Mild concentric left ventricular hypertrophy. Pulmonary artery systolic pressure is 28 mmHg. Ordering Physician: Bhavin Vilchis Referring Physician: Bhavin Vilchis Performed By: Fermin Keating RCS
== END 2021-08-22 23:59 | disposition home or self-care (01) ==
LOC: CVS 12:52
PROVIDERS: PCP Family Medicine; Referring Provider Family Medicine; Visit Provider Family Medicine
DX: R06.02 Shortness of breath (principal)
CPT/HCPCS: 93306

== ENCOUNTER → 2022-01-27 | Outpatient (CLI) | payer MEDICARE, OTHER, SELFPAY ==
[2022-01-27 18:06] LABS: Absolute Lymphocyte Count 1.74 X10^3/uL (0.83-4.51); Absolute Neutrophil Count 3.4 X10^3/uL (2.0-7.7); Basophil# 0.02 X10^3/uL; Basophil% 0.3 % (0-1); Eosinophil# 0.15 X10^3/uL; Eosinophils% 2.5 % (0-5); Hematocrit 49.5 % (40-54); Hemoglobin 16.3 g/dL (13.0-16.5); Lymphocyte # 1.74 X10^3/ul (0.83-4.51); Lymphocyte % 29.4 % (19-41); Mean Corp Hgb Conc 32.9 g/dL (32-36); Mean Corpuscular Hgb 28.6 pg (27.0-32.0); Mean Corpuscular Volume 86.8 fL (80-94); Mean Platelet Vol. 10.4 fl (6.2-12.0); Monocyte# 0.53 X10^3/uL; NRBC Flagged by Analyzer 0 % (0-5); Neutrophil # 3.44 X10^3/uL (2.7-7.7); Neutrophil % 58.3 % (47-70); Platelet Count 160 K/mm3 (150-450); RBC Distribution Width SD 44.5 fl (35.1-43.9); White Blood Count 5.9 K/mm3 (4.4-11.0)
[2022-01-27 18:44] LABS: ALB/GLOB Ratio 1.2 RATIO (0.9-2.4); AST(SGOT) 21 U/L (15-37); Alanine Aminotransfer ALT/SGPT 28 U/L (16-61); Albumin, Serum 3.8 g/dL (3.2-5.0); Alkaline Phosphatase 102 U/L (45-117); Anion Gap 8 (5-15); BUN 19 mg/dL (7-18); BUN/Creat Ratio 18.8 RATIO (10-20); Calcium,Total 8.9 mg/dL (8.5-10.1); Chloride 104 mmol/L (98-107); Cholesterol 197 mg/dL (200); Creatinine, Serum 1.01 mg/dL (0.70-1.30); EST Glomerular Filtration Rate 75 mL/min (>60); Est Glom Filt Rate - Afr Amer 91 mL/min (>60); Globulin 3.3 g/dL (2.2-4.2); Glucose 82 mg/dL (74-106); High Density Lipoprotein 55 mg/dL; Magnesium 2.1 mg/dL (1.6-2.6); Potassium 4.2 mmol/L (3.5-5.1); Protein, Total 7.1 g/dL (6.4-8.2); Sodium Level 140 mmol/L (136-145); Thyroid Stim Hormone (TSH) 4.52 uIU/mL (0.358-3.74); Triglycerides 79 mg/dL; Very Low Density Lipoprotein 16 mg/dL (5-40)
[2022-01-28 11:00] LABS: T4 Free Direct 1.21 ng/dL (0.76-1.46)
[2022-02-05 00:06] LABS: Thyroid Peroxidase AB < 8 IU/mL (0-34)
[2022-02-05 08:28] LABS: Thyroglobulin Antibody < 1.0 IU/mL (0.0-0.9)
== END | disposition home or self-care (01) ==
LOC: MFPLAB 15:55
PROVIDERS: PCP Family Medicine; Visit Provider Family Medicine
DX: R79.89 Other specified abnormal findings of blood chemistry (principal); I48.0 Paroxysmal atrial fibrillation; I10 Essential (primary) hypertension
CPT/HCPCS: 36415; 80053; 80061; 83735; 84439; 84443; 85025; 86376; 86800

== ENCOUNTER 2022-06-14 08:40 | Inpatient (IN) | payer MEDICARE, SELFPAY ==
[2022-06-14] VITALS (21 sets, daily range): BP systolic 98–189; BP diastolic 63–113; PULSE 70–123; RESP 16–20; TEMP 36.1–37.9; O2SAT 86–98; BMI 30.5; BMI 31.2
--- NOTE | 2022-06-14 09:10 | ED.VIS.GI ---
HPI HPI - GI History of Present Illness Chief Complaint: Abd Pain Informant: patient Abdominal Pain/Flank Pain Onset: Days (2) Context: Gradual Onset Timing: Intermittent Quality: Burning and Sharp Location: RLQ Worsened by: Car ride Relieved by: - (Belching) Nausea/Vomiting/Emesis GI Symptom: Positive for Nausea and Vomiting Onset: Yesterday Quality: Positive for Nonbilious; Negative for Blood streaks, Coffee ground or Hematemesis Diarrhea/Melena/Hematochezia GI Symptom: Negative for Diarrhea, Melena or Hematochezia Associated Symptoms Associated Symptoms: Negative for Dysuria, Frequency or Hematuria Narrative Narrative: Patient presents with abdominal pain that has been getting progressively worse over the last 2 days. Patient states he started having some mild pain 2 days ago. Patient states that yesterday it became worse. Patient states it comes and goes. Patient states it is mainly over the right lower abdomen. Patient states it is worse with hitting a bump in the road. Patient states that belching seems to help with it. Patient did have an episode of nausea and vomiting yesterday. Patient denies any diarrhea, melena, or hematochezia. Patient denies any urinary complaints. [facility] Medical History Essential (primary) hypertension History of cardiac dysrhythmia HLD (hyperlipidemia) Non-rheumatic tricuspid valve insufficiency Osteoarthritis Paroxysmal supraventricular tachycardia Persistent atrial fibrillation PFO (patent foramen ovale) Home Medications saw palmetto 1,000 mg capsule 1,000 mg PO DAILY 02/07/18 [History Last Taken Unknown] multivitamin (Daily Multi-Vitamin tablet) 1 tab PO DAILY 02/22/18 [History Last Taken Unknown] aspirin 81 mg tablet,delayed release (Adult Low Dose Aspirin) 81 mg PO QDAY #90 tabs 11/01/18 [Rx Last Taken Unknown] coenzyme Q10 100 mg tablet,extended release 24 hr 100 mg PO DAILY 11/04/21 [History Last Taken Unknown] zinc gluconate 50 mg tablet 50 mg PO DAILY 11/04/21 [History Last Taken Unknown] lisinopril 10 mg tablet 5 mg PO DAILY 06/14/22 [History Last Taken Unknown] Allergy/AdvReac Type Severity Reaction Status Date / Time meperidine Allergy NEEDS Verified 06/14/22 08:41 FOLLOW-UP antihistamines Allergy unknown Uncoded 06/14/22 08:41 Family History Son Diabetes Daughter Diabetes Father Alcoholism Mother Cancer Brother Myocardial infarction Surgical History H/O knee surgery History of bilateral knee replacement (2019) History of cardioversion (05/25/01) History of herniorrhaphy History of orchiectomy History of radiofrequency ablation procedure for cardiac arrhythmia (04/30/03) Social History Smoking Status: Former smoker alcohol intake: current substance use type: does not use ROS ROS ED Constitutional Constitutional ED: Reports chills and subjective; Denies fever(s) Eyes Eyes: Denies blurry vision or change in vision ENT ENT ED: Denies rhinorrhea or sore throat Cardiovascular Cardiovascular: Denies chest pain or palpitations Respiratory/Chest Respiratory/Chest: Denies cough or dyspnea Gastrointestinal Gastrointestinal: Reports abdominal pain, nausea and vomiting; Denies constipation, diarrhea or melena Genitourinary Genitourinary ED: Denies dysuria or hematuria Musculoskeletal Musculoskeletal: Denies back pain or neck pain Integumentary Denies abscess or rash Neurologic Neurologic: Denies headache(s) or weakness Allergic/Immunologic Allergic/Immunologic ED: Denies mouth swelling or urticaria EXAM Physical Exam Const Vital Signs: 06/14/22 08:42 06/14/22 11:23 06/14/22 12:14 Temperature 97.0 F L Temperature Source Temporal Pulse Rate 102 H 88 113 H Respiratory Rate 17 20 H 18 Blood Pressure 174/108 H 178/108 H 189/113 H Blood Pressure Mean 130 131 138 Pulse Ox 98 94 Oxygen Delivery Method Room Air Room Air 06/14/22 13:21 Temperature 100.2 F H Temperature Source Oral Pulse Rate 123 H Respiratory Rate 18 Blood Pressure 147/89 H Blood Pressure Mean 108 Pulse Ox 92 Oxygen Delivery Method Room Air Positive well nourished and well developed General Appearance ED: well developed HEENT Reports moist mucous membranes Neck supple and no JVD Resp normal respiratory effort and clear to auscultation bilaterally Cardio regular rate, regular rhythm and no murmurs GI normal to inspection, nondistended, normoactive bowel sounds Palpation: soft and tender RLQ, suprapubic, Obturator sign and Rovsing's sign; Negative for guarding Extremity normal to inspection General Extremety ED: Negative for edema or tenderness General Extremity: Negative for edema Neuro oriented x3, CN's II-XII intact bilaterally and no sensory deficits noted Sensorium / Orientation: alert Motor Exam: strength 5/5 throughout Psych mental status grossly normal Skin no rashes or lesions noted MDM MDM MDM Narrative Medical decision making narrative: Patient is given IV fluids and morphine. Differential diagnosis includes appendicitis, colitis, bowel obstruction, incarcerated inguinal hernia, mesenteric adenitis, enteritis, renal calculus, and pyelonephritis. CBC will be obtained to assess for leukocytosis and anemia. Comprehensive metabolic profile will be obtained to assess for electrolyte abnormality, renal function, and hepatic function. Urinalysis will be obtained to assess for urinary tract infection and hematuria. CT scan of the abdomen and pelvis will be obtained to assess for obstruction, mass, appendicitis, or other inflammatory bowel disorder. PT with INR and PTT will be obtained to assess for coagulopathy. Lab Data Attestation: I reviewed the patient's lab results. Lab results narrative: See BC the was reviewed and was essentially within normal limits. Comprehensive metabolic profile was reviewed and showed a slightly elevated total bilirubin of 1.4 but was otherwise within normal limits. PT with INR and PTT were reviewed and were normal. Labs: Laboratory Results - last 24 hr 06/14/22 06/14/22 06/14/22 08:56 08:56 08:56 WBC 10.4 RBC 5.86 Hgb 17.1 H Hct 50.5 MCV 86.2 MCH 29.2 MCHC 33.9 RDW Std Deviation 42.3 RDW Coeff of Yeny 13.5 Plt Count 147 L MPV 10.5 Immature Gran % (Auto) 1.000 H Neut % (Auto) 84.4 H Lymph % (Auto) 5.7 L [place] % (Auto) 8.7 Eos % (Auto) 0.0 Baso % (Auto) 0.2 Absolute Neuts (auto) 8.8 H Absolute Lymphs (auto) 0.59 L Nucleated RBC % 0 Differential Comment SCANNED PT 14.0 INR 1.1 APTT 30.8 Sodium 139 Potassium 3.5 Chloride 102 Carbon Dioxide 26.0 Anion Gap 11 BUN 16 Creatinine 1.06 Estim Creat Clear Calc 57.96 Est GFR (MDRD) Af Amer 86 Est GFR (MDRD) Non-Af 71 BUN/Creatinine Ratio 15.1 Glucose 147 H Calcium 9.1 Total Bilirubin 1.40 H AST 20 ALT 19 Alkaline Phosphatase 90 Total Protein 7.3 Albumin 4.0 Globulin 3.3 Albumin/Globulin Ratio 1.2 Radiography Diagnostic Testing: Clinical Impression(s) from Imaging Studies Abdomen/Pelvis CT 06/14/22 09:18 IMPRESSION: Acute appendicitis. Atherosclerosis. Colonic diverticulosis. Degenerative changes of the visualized thoracic and lumbar spine. Electronically Signed: Juliet Velarde MD at 12:06 EST , CT scan of the abdomen pelvis was reviewed. On my independent interpretation, there is evidence of appendicitis. There is no perforation. There is no bowel obstruction. Radiologist also reviewed the CT scan and agrees with appendicitis. There is also diverticulosis of the colon and degenerative changes of the thoracic and lumbar spine. EKG Initial EKG: Attestation: I personally reviewed and interpreted this EKG as follows: Interpretation: Atrial Fibrillation (128) and Non-Specific ST Changes Comments: EKG was obtained. On my interpretation, it shows atrial fibrillation with a rate of 128. QRS interval was normal. QTc interval was normal. [place] is normal. There are nonspecific ST-T wave changes. Prior EKG tracings: available for review Prior: Changed (On review of previous EKG, the patient has a history of atrial fibrillation but not rapid ventricular response.) Treatment and Re-Evaluation Narrative: Patient was given a dose of Zosyn. Patient was noted to have a tachycardia. Patient was placed on desk monitor and was noted to be in atrial fibrillation with rapid ventricular response. Patient was given a bolus of Cardizem. Patient was started on Cardizem drip. Case was discussed with Dr. Tavares. He will discuss with anesthesia to see if patient can go to surgery today. He states that if the patient's heart rate is controlled patient will be stable for surgery. Case was also discussed with the hospitalist. He will admit the patient to PCU. Patient's heart rate improved to 108. Patient will be taken to surgery for appendectomy and then admitted to the hospital afterwards. Patient and family understand and are agreeable with the plan. All questions were answered. Critical Care Time Critical Care Time: Yes Critical care time (excluding procedures): 30-74 minutes (38), Including time spent:, Discussing w/Patient &/or Family/Socket Puller, Discussing w/Consultants, Arranging Admission or Transfer and Performing Direct Patient Care at Bedside Discharge Plan Dx/Rx/DC Orders Clinical Impression: Atrial fibrillation with RVR, Essential (primary) hypertension, Acute appendicitis Disposition Disposition: Acute Care Hospital [facility] Discharge Date/Time: 06/14/22 14:29
--- NOTE | 2022-06-14 09:18 | CT_ITS ---
INDICATION: Abdominal pain -- IV PO Contrast EXAMINATION: CT ABDOMEN AND PELVIS WITH CONTRAST - CT Abdomen And Pelvis W/ Contrast Injection TECHNIQUE: Helically acquired images were obtained of the abdomen and pelvis following IV contrast. A radiation dose optimization technique was used for this scan. IV Contrast dosage and agent: 100 cc of Isovue-370 Oral contrast: Gastrografin COMPARISON: None. FINDINGS: LOWER CHEST: There is minimal bibasilar atelectasis and/or scarring.. No cardiomegaly or pericardial effusion. LIVER: Homogeneous. No focal mass. GALLBLADDER AND BILIARY TREE: No calcified gallstones. No gallbladder distension or wall edema. No intra- or extrahepatic biliary ductal dilation. PANCREAS: No focal cystic or solid mass. SPLEEN: Normal size without focal cystic or solid mass. ADRENAL GLANDS: No nodules. KIDNEYS AND URETERS: There is a too small to characterize low-attenuation focus within the right kidney which may reflect a cyst. There is a left renal cyst. PERITONEUM: No free air. BOWEL: The appendix is dilated with associated wall thickening and periappendiceal stranding consistent with appendicitis. There is minimal free fluid within the right lower quadrant. There are diverticula arising from the colon. LYMPH NODES: No enlarged mesenteric or retroperitoneal lymph nodes. VESSELS: Aorta is non-dilated. There are peripheral calcifications of the abdominal aorta. URINARY BLADDER: Unremarkable. REPRODUCTIVE ORGANS: The prostate gland is enlarged. ABDOMINAL WALL: No discrete abdominal or pelvic wall hernia. BONES: There are degenerative changes of the visualized thoracic and lumbar spine. CT/Abdomen/Pelvis WITH Contrast IMPRESSION: Acute appendicitis. Atherosclerosis. Colonic diverticulosis. Degenerative changes of the visualized thoracic and lumbar spine. Electronically Signed: Juliet Velarde MD at 12:06 EST ,
[2022-06-14 09:32] LABS: Absolute Lymphocyte Count 0.59 X10^3/uL (0.83-4.51); Absolute Neutrophil Count 8.8 X10^3/uL (2.0-7.7); Basophil# 0.02 X10^3/uL; Basophil% 0.2 % (0-1); Hematocrit 50.5 % (40-54); Hemoglobin 17.1 g/dL (13.0-16.5); Lymphocyte # 0.59 X10^3/ul (0.83-4.51); Lymphocyte % 5.7 % (19-41); Mean Corp Hgb Conc 33.9 g/dL (32-36); Mean Corpuscular Hgb 29.2 pg (27.0-32.0); Mean Corpuscular Volume 86.2 fL (80-94); Mean Platelet Vol. 10.5 fl (6.2-12.0); Monocyte# 0.91 X10^3/uL; Monocyte% 8.7 % (0-10); NRBC Flagged by Analyzer 0 % (0-5); Neutrophil # 8.81 X10^3/uL (2.7-7.7); Neutrophil % 84.4 % (47-70); POSITIVE DIFFERENTIAL YES; Platelet Count 147 K/mm3 (150-450); RBC Distribution Width CV 13.5 % (11.6-14.6); RBC Distribution Width SD 42.3 fl (35.1-43.9); Red Blood Count 5.86 M/mm3 (4.6-6.2); White Blood Count 10.4 K/mm3 (4.4-11.0)
[2022-06-14] MEDS: 0.9% Normal Saline 1,000 ML 1000 ML IV (09:32)
[2022-06-14 09:33] LABS: Differential Indicated SCAN CRITERIA MET
[2022-06-14] MEDS: Ondansetron 4 MG/2 ML Vial IV (09:33)
[2022-06-14] MEDS: Morphine 4 MG/ML Syringe IV ×2 (09:34→10:11)
[2022-06-14 09:42] LABS: International Normalized Ratio 1.1
[2022-06-14 09:43] LABS: Partial Thromboplast Time 30.8 Seconds (24.1-36.2)
[2022-06-14 09:50] LABS: Differential Comment SCANNED
[2022-06-14 09:56] LABS: ALB/GLOB Ratio 1.2 RATIO (0.9-2.4); AST(SGOT) 20 U/L (15-37); Alanine Aminotransfer ALT/SGPT 19 U/L (16-61); Alkaline Phosphatase 90 U/L (45-117); Anion Gap 11 (5-15); BUN 16 mg/dL (7-18); BUN/Creat Ratio 15.1 RATIO (10-20); Calcium,Total 9.1 mg/dL (8.5-10.1); Chloride 102 mmol/L (98-107); Creatinine, Serum 1.06 mg/dL (0.70-1.30); EST Glomerular Filtration Rate 71 mL/min (>60); Est Glom Filt Rate - Afr Amer 86 mL/min (>60); Estimated Creatinine Clearance 57.96 ml/min; Globulin 3.3 g/dL (2.2-4.2); Glucose 147 mg/dL (74-106); Potassium 3.5 mmol/L (3.5-5.1); Protein, Total 7.3 g/dL (6.4-8.2); Sodium Level 139 mmol/L (136-145)
--- NOTE | 2022-06-14 12:22 | EKG12_ITS ---
Test Reason : TACHYCARDIA Blood Pressure : / mmHG Vent. Rate : 128 BPM Atrial Rate : 000 BPM P-R Int : 000 ms QRS Dur : 086 ms QT Int : 312 ms P-R-T Axes : 000 -04 -04 degrees QTc Int : 455 ms Atrial fibrillation with rapid ventricular response with premature ventricular or aberrantly conducte d complexes Nonspecific ST abnormality Abnormal ECG . Confirmed by SHAR DASILVA, ADWOA ([id number]), sports editor DIONE LORENZANA ([id number]) on 06/15/2022 10:15:59 AM Referred By: BETZAIDA Confirmed By:ADWOA MYLES MD
[2022-06-14] MEDS: dilTIAZem 25 MG/5 ML Vial IV BOLUS (12:45)
[2022-06-14] MEDS: HYDROmorphone 1 MG/ML Syringe IV (12:45)
[2022-06-14 13:29] LABS: Bacteria 0 SEEN /hpf (None Seen); Mucous, Urine 0 SEEN /hpf (<or=2+); Squamous Epithelial Cells - UA 0 SEEN /hpf (0-5)
--- NOTE | 2022-06-14 13:30 | HP.PCM.HOS_ITS ---
[facility] of Admission: 06/14/22 Date of Service: 06/14/22 Chief Complaint: A. fib with RVR, RLQ pain for 2 days since Wednesday night along with nausea HPI Narrative 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 fib status post ablation came to ED for right lower quadrant abdominal pain started 2 days ago on Wednesday night. He describes abdominal pain as intermittent, colicky and then became persistent and progressive, 10/10 intensity associated with nausea and dry heaving. He had mild feverish feeling 1 day ago. He denies vomiting, last bowel movement 2 days ago. He is passing small flatus but burping a lot. In ED, patient found to have A. fib with RVR. He states he normally in sinus rhythm or sometimes heavy meal mild prostate A. fib. He denies chest pain, shortness of breath, dizziness or lightheadedness. He had ablation in [facility] in [address] [place]. Twelve-lead EKG individually reviewed and is A. fib with RVR at 128 bpm, QTC [address] abnormality. ED vitals heart rate 113, BP 147/89 although it was high 170/108 in triage. T- max 100.2 Fahrenheit. No hypoxia or tachypnea. [facility] Medical History Essential (primary) hypertension History of cardiac dysrhythmia HLD (hyperlipidemia) Non-rheumatic tricuspid valve insufficiency Osteoarthritis Paroxysmal supraventricular tachycardia Persistent atrial fibrillation PFO (patent foramen ovale) Home Medications saw palmetto 1,000 mg capsule 1,000 mg PO DAILY 02/07/18 [History Last Taken Unknown] multivitamin (Daily Multi-Vitamin tablet) 1 tab PO DAILY 02/22/18 [History Last Taken Unknown] aspirin 81 mg tablet,delayed release (Adult Low Dose Aspirin) 81 mg PO QDAY #90 tabs 11/01/18 [Rx Last Taken Unknown] coenzyme Q10 100 mg tablet,extended release 24 hr mg PO 11/04/21 [History Last Taken Unknown] zinc gluconate 50 mg tablet 50 mg PO DAILY 11/04/21 [History Last Taken Unknown] lisinopril 10 mg tablet 5 mg PO DAILY 06/14/22 [History Last Taken Unknown] Allergy/AdvReac Type Severity Reaction Status Date / Time meperidine Allergy NEEDS Verified 06/14/22 08:41 FOLLOW-UP antihistamines Allergy unknown Uncoded 06/14/22 08:41 Family History Son Diabetes Daughter Diabetes Father Alcoholism Mother Cancer Brother Myocardial infarction Surgical History H/O knee surgery History of bilateral knee replacement (2019) History of cardioversion (05/25/01) History of herniorrhaphy History of orchiectomy History of radiofrequency ablation procedure for cardiac arrhythmia (04/30/03) Social History Smoking Status: Former smoker alcohol intake: current substance use type: does not use ROS ROS Narrative Constitutional: Reports fatigue and weakness, persistent belching, retching and nausea. HEENT: Reports systems reviewed and no addt'l complaints, except as documented Respiratory/Chest: Denies chest pain, shortness of breath at rest or with exertion Gastrointestinal: Abdominal pain as described in HPI Genitourinary: Denies burning urination or new urinary tract symptoms Musculoskeletal: Bilateral TKR. Degenerative arthritis in hand joints and hips. Reports joint pain and limited range of motion Neurologic: Denies seizure-like activity. No focal strokelike symptoms. skin: No ulcer. No rash Endocrinology: Reports systems reviewed and no addt'l complaints, except as documented Hematologic/Lymphatic: Reports systems reviewed and no addt'l complaints, except as documented Rest 14 ROS are negative except as mentioned in HPI Vital Signs Vital Signs Vital Signs: 06/14/22 08:42 06/14/22 11:23 06/14/22 12:14 Temperature 97.0 F L Temperature Source Temporal Pulse Rate 102 H 88 113 H Respiratory Rate 17 20 H 18 Blood Pressure 174/108 H 178/108 H 189/113 H Blood Pressure Mean 130 131 138 Pulse Ox 98 94 Oxygen Delivery Method Room Air Room Air 06/14/22 13:21 Temperature 100.2 F H Temperature Source Oral Pulse Rate 123 H Respiratory Rate 18 Blood Pressure 147/89 H Blood Pressure Mean 108 Pulse Ox 92 Oxygen Delivery Method Room Air Weight Weight: 225 lb 1.6 oz Body Mass Index (BMI) 30.5 Physical Exam Narrative Physical exam General: Alert, Oriented x3, Cooperative HEENT: Atraumatic, PERRLA, EOMI, Normocephalic Oral: Oral mucosa dry. No Gingival or Mucosal Lesions/ Ulcerations Neck: Supple, No JVD, Negative Carotid Bruits Lungs: Air entry diminished in bilateral lung bases. No crepitation/rhonchi Cardiovascular: A. fib RVR, Normal S1, Normal S2, No murmurs Abdomen: Soft, tenderness present over RLQ McBurney's point. Reflex tenderness on pushing left lower quadrant. Bowel Sounds Present, Non-Distended. Small umbilical hernia : No renal angle tenderness. No suprapubic tenderness. Extremities: No edema, Capillary Refill Less than 3 Seconds Skin: No rashes, No breakdown Musculoskeletal: No Tenderness to Palpation of Joints or Extremities, bilateral TKR. ROM full. Neurological: Cranial nerves II-XII grossly intact, DTR 2+/4 and Symmetrical, Neuro grossly intact Psych/Mental Status: Flat affect, in pain Results Lab / Micro Data Result Diagrams: 06/14/22 08:56 06/14/22 08:56 Labs: Laboratory Results - last 24 hr 06/14/22 08:56: WBC 10.4, RBC 5.86, Hgb 17.1 H, Hct 50.5, MCV 86.2, MCH 29.2, MCHC 33.9, RDW Std Deviation 42.3, RDW Coeff of Yeny 13.5, Plt Count 147 L, MPV 10.5, Immature Gran % (Auto) 1.000 H, Neut % (Auto) 84.4 H, Lymph % (Auto) 5.7 L , [place] % (Auto) 8.7, Eos % (Auto) 0.0, Baso % (Auto) 0.2, Absolute Neuts (auto) 8.8 H, Absolute Lymphs (auto) 0.59 L, Nucleated RBC % 0, Differential Comment SCANNED 06/14/22 08:56: PT 14.0, INR 1.1, APTT 30.8 06/14/22 08:56: Sodium 139, Potassium 3.5, Chloride 102, Carbon Dioxide 26.0, Anion Gap 11, BUN 16, Creatinine 1.06, Estim Creat Clear Calc 57.96, Est GFR (MDRD) Af Amer 86, Est GFR (MDRD) Non-Af 71, BUN/Creatinine Ratio 15.1, Glucose 147 H, Calcium 9.1, Total Bilirubin 1.40 H, AST 20, ALT 19, Alkaline Phosphatase 90, Total Protein 7.3, Albumin 4.0, Globulin 3.3, Albumin/Globulin Ratio 1.2 Radiology Impression Abdomen/Pelvis CT 06/14/22 09:18 IMPRESSION: Acute appendicitis. Atherosclerosis. Colonic diverticulosis. Degenerative changes of the visualized thoracic and lumbar spine. Electronically Signed: Juliet Velarde MD at 12:06 EST , Assessment & Plan Assessment/Plan (1) Persistent atrial fibrillation: (2) Acute appendicitis: PLAN: Plan This is a 29-year-old gentleman came to ED for RLQ abdominal pain, nausea and clinical findings and CT scan imaging consistent with acute appendicitis. Patient also found to be in A. fib with RVR. 1. A. fib with RVR precipitated by acute appendicitis with history of PSVT: Patient is being admitted in PCU. Started on Cardizem drip at 10 mg/h after 25 mg IV Cardizem bolus in ED. Patient not on anticoagulation but on baby aspirin and he does not want to be as per last cardiology visit with Dr. Birmingham in October 2021. Last echo August 2021 reported normal LV systolic function EF 60% with mild concentric LVH, PASP 28 mmHg. Mild 1+ eccentric MR. Last pharmacological myocardial perfusion stress test in October 2018 reported normal with preserved EF. K3.5, IV KCl 20 M EQ ordered. Serum magnesium and phosphorus ordered pending. 2. Acute appendicitis: CT abdomen individually reviewed and reported dilated appendix with Estridge wall thickening and periappendiceal stranding consistent with appendicitis. Minimal fluid in RLQ. Diverticular from colon. Dr. aY villasenor is consulted and discussed with him, once the heart rate is controlled patient will be taken for surgery. Patient had IV Zosyn in the ER. 3. Hypertension: Blood pressure is elevated but patient on Cardizem drip. 4. Dyslipidemia: Fasting profile tomorrow AM. 5. Chronic degenerative arthritis status post bilateral TKR: Home medication reconciliation done. Discontinue if platelet count drops less than 50,000 or hemoglobin less than 8 g% Living will/advanced directive/end of life care: Patient does have living will or advanced directive. His is power of deputy commonwealth's attorney for health after discussion of benefits/risks procedures involved with full code, DNR CC arrest and DNR CC, the patient opted for full code. Patient does want artificial life support including intubation, tube feed, ventilator and/chest compression, central venous catheter, vasopressor and DC shock if needed Total time spent in [id number] encounter in discussion of advanced directive 16 minutes. Laboratory Results 06/14/22 08:56: WBC 10.4, RBC 5.86, Hgb 17.1 H, Hct 50.5, MCV 86.2, MCH 29.2, MCHC 33.9, RDW Std Deviation 42.3, RDW Coeff of Yeny 13.5, Plt Count 147 L, MPV 10.5, Immature Gran % (Auto) 1.000 H, Neut % (Auto) 84.4 H, Lymph % (Auto) 5.7 L , [place] % (Auto) 8.7, Eos % (Auto) 0.0, Baso % (Auto) 0.2, Absolute Neuts (auto) 8.8 H, Absolute Lymphs (auto) 0.59 L, Nucleated RBC % 0, Differential Comment SCANNED 06/14/22 08:56: PT 14.0, INR 1.1, APTT 30.8 06/14/22 08:56: Sodium 139, Potassium 3.5, Chloride 102, Carbon Dioxide 26.0, Anion Gap 11, BUN 16, Creatinine 1.06, Estim Creat Clear Calc 57.96, Est GFR (MDRD) Af Amer 86, Est GFR (MDRD) Non-Af 71, BUN/Creatinine Ratio 15.1, Glucose 147 H, Calcium 9.1, Total Bilirubin 1.40 H, AST 20, ALT 19, Alkaline Phosphatase 90, Total Protein 7.3, Albumin 4.0, Globulin 3.3, Albumin/Globulin Ratio 1.2 06/14/22 13:25: Urine Color Pending, Urine Clarity Pending, Urine pH Pending, Ur Specific [place] Pending, Urine Protein Pending, Urine Glucose (UA) Pending, Urine Ketones Pending, Urine Occult Blood Pending, Urine Nitrite Pending, Urine Bilirubin Pending, Urine Urobilinogen Pending, Ur Leukocyte Esterase Pending, Urine RBC Pending, Urine WBC Pending, Ur Squamous Epith Cells Pending, Urine Bacteria Pending, Urine Mucus Pending 06/14/22 13:25: Troponin I High Sens Pending 06/14/22 13:25: Phosphorus Pending, Magnesium Pending Charges/Coding Visit Charges Inpatient E&M: 70181 Init Hosp L3 Procedures Hospitalists Procedures: 58812 Advncd Care Plan 30 Min
--- NOTE | 2022-06-14 13:42 | EX.PCM.CON.S ---
Assessment & Plan Assessment/Plan (1) Acute appendicitis: QUALIFIERS: Acute appendicitis type: unspecified acute appendicitis type Qualified Code(s): K35.80 - Unspecified acute appendicitis (2) Persistent atrial fibrillation: PLAN: Plan The patient has right lower quadrant pain and CT scan shows acute appendicitis. The patient has A. fib RVR currently as well. Patient does have a history of A. fib and sees Dr. Birmingham for this. The hospital service was consulted and saw the patient in the ER and started on a Cardizem drip. I discussed laparoscopic appendectomy with the patient in detail. Patient also has a small umbilical hernia he would like repaired and I informed her that I could not repair this with mesh but I would be able to use it as a port and suture it closed. I discussed the procedure in detail as well as the risks including but not limited to bleeding, infection, injury to surrounding organs such as the colon, bladder, ureter, small bowel. Patient understands all the risks and is when to proceed with laparoscopic appendectomy. Patient was given Zosyn in the emergency room. Rex Tavares MD Pager: [facility] [address] [place] [address], [address] [place] [address] Office: HPI Consult Data Date of Consult: 06/14/22 HPI Narrative HPI Narrative: PROSPER GOULD, is a 82 M who presents with right lower abdomen pain. Patient states that started Wednesday afternoon. He does say that he had chills but denies fever or nausea or vomiting. [facility] Medical History Essential (primary) hypertension History of cardiac dysrhythmia HLD (hyperlipidemia) Non-rheumatic tricuspid valve insufficiency Osteoarthritis Paroxysmal supraventricular tachycardia Persistent atrial fibrillation PFO (patent foramen ovale) Home Medications saw palmetto 1,000 mg capsule 1,000 mg PO DAILY 02/07/18 [History Last Taken Unknown] multivitamin (Daily Multi-Vitamin tablet) 1 tab PO DAILY 02/22/18 [History Last Taken Unknown] aspirin 81 mg tablet,delayed release (Adult Low Dose Aspirin) 81 mg PO QDAY #90 tabs 11/01/18 [Rx Last Taken Unknown] coenzyme Q10 100 mg tablet,extended release 24 hr 100 mg PO DAILY 11/04/21 [History Last Taken Unknown] zinc gluconate 50 mg tablet 50 mg PO DAILY 11/04/21 [History Last Taken Unknown] lisinopril 10 mg tablet 5 mg PO DAILY 06/14/22 [History Last Taken Unknown] Allergy/AdvReac Type Severity Reaction Status Date / Time meperidine Allergy NEEDS Verified 06/14/22 08:41 FOLLOW-UP antihistamines Allergy unknown Uncoded 06/14/22 08:41 Family History Son Diabetes Daughter Diabetes Father Alcoholism Mother Cancer Brother Myocardial infarction Surgical History H/O knee surgery History of bilateral knee replacement (2019) History of cardioversion (05/25/01) History of herniorrhaphy History of orchiectomy History of radiofrequency ablation procedure for cardiac arrhythmia (04/30/03) Social History Smoking Status: Former smoker alcohol intake: current substance use type: does not use ROS Constitutional Constitutional: Reports anorexia and chills; Denies fatigue or fever(s) Eyes Eyes: Denies blurry vision ENT HEENT: Denies abnormal hearing Cardiovascular Cardiovascular: Denies chest pain Respiratory/Chest Respiratory/Chest: Denies cough Gastrointestinal Gastrointestinal: Reports abdominal pain; Denies constipation, diarrhea, nausea or vomiting Musculoskeletal Musculoskeletal: Denies abnormal gait Integumentary Integumentary: Denies jaundice Neurologic Neurologic: Denies dizziness Psychiatric Psychiatric: Denies anxiety Physical Exam Const alert and oriented x3 HEENT normocephalic Eyes PERRL Resp normal respiratory effort Cardio Rate: regular rate Rhythm: regular rhythm GI soft to palpation Palpation: tender RLQ Lab / Micro Data Result Diagrams: 06/14/22 08:56 06/14/22 08:56 Labs: Laboratory Results - last 24 hr 06/14/22 08:56: WBC 10.4, RBC 5.86, Hgb 17.1 H, Hct 50.5, MCV 86.2, MCH 29.2, MCHC 33.9, RDW Std Deviation 42.3, RDW Coeff of Yeny 13.5, Plt Count 147 L, MPV 10.5, Immature Gran % (Auto) 1.000 H, Neut % (Auto) 84.4 H, Lymph % (Auto) 5.7 L, [place] % (Auto) 8.7, Eos % (Auto) 0.0, Baso % (Auto) 0.2, Absolute Neuts (auto) 8.8 H, Absolute Lymphs (auto) 0.59 L, Nucleated RBC % 0, Differential Comment SCANNED 06/14/22 08:56: PT 14.0, INR 1.1, APTT 30.8 06/14/22 08:56: Sodium 139, Potassium 3.5, Chloride 102, Carbon Dioxide 26.0, Anion Gap 11, BUN 16, Creatinine 1.06, Estim Creat Clear Calc 57.96, Est GFR (MDRD) Af Amer 86, Est GFR (MDRD) Non-Af 71, BUN/Creatinine Ratio 15.1, Glucose 147 H, Calcium 9.1, Total Bilirubin 1.40 H, AST 20, ALT 19, Alkaline Phosphatase 90, Total Protein 7.3, Albumin 4.0, Globulin 3.3, Albumin/Globulin Ratio 1.2 Radiology Impression Abdomen/Pelvis CT 06/14/22 09:18 IMPRESSION: Acute appendicitis. Atherosclerosis. Colonic diverticulosis. Degenerative changes of the visualized thoracic and lumbar spine. Electronically Signed: Juliet Velarde MD at 12:06 EST ,
[2022-06-14 13:53] LABS: Color, Urine Yellow (Yellow); Glucose, Dipstick Normal (Normal); Ketone-Dipstick Negative (Negative); Leukocyte Esterase-Dipstick 25 /ul (Negative); Nitrite-Dipstick Negative (Negative); Occult Blood-Urine 25 /ul (Negative); Protein-Dipstick 30 mg/dl (Negative); Urine Bilirubin Dipstick Negative (Negative); Urine Clarity Clear (Clear); Urine Urobilinogen Normal (Normal)
[2022-06-14 13:55] LABS: Magnesium 1.8 mg/dL (1.6-2.6); Phosphorus 2.4 mg/dL (2.5-4.9)
[2022-06-14 13:56] LABS: Troponin-I HS (w/2H Reflex) 11 pg/mL (3.0-78.0)
[2022-06-14] MEDS: 0.9% Normal Saline 1,000 ML 15 ML IV ×2 (14:00→16:32)
[2022-06-14 14:25] LABS: Red Blood Cells-Urine 0-5 SEEN /hpf (0-5); White Blood Cells 0-5 SEEN /hpf (0-5)
--- NOTE | 2022-06-14 14:35 | APP_PTH ---
PATIENT: PROSPER GOULD LOC: [facility] U#:[id number] AGE/SX: 82/M ROOM: [facility] RE06/14/[address]: Dr. David Mott MD : 1940 BED: 1 DIS: 06/16/2022 SPEC #: [id number] RECD: 06/15/22 07:17 STATUS: BANDAR REApril #: [id number] MERE: 06/14/22 14:[address]: Rex Tavares DEPT: SURGICAL PATHOLOGY RECD BY: Bharti Tejeda ENTERED: 06/15/22 08:45 SP TYPE: APPENDIX OTHR DR: MD Dr. Bhavin Jackson MD Dr. Prakash Chand, MD Tissues: Appendix, NOS Procedures: Surgery Specimen Level III Comments: @ Ordering doctor for SUIII edited from to @ by DAVID at 06/15/22 1018 @ Submitting doctor edited from to @ by DAVID at 06/15/22 1018 HEADER OPERATION: Laparoscopic appendectomy, repair umbilical hernia PRE-OP DIAGNOSIS: Acute appendicitis TISSUE SUBMITTED: Appendix MICROSCOPIC DIAGNOSIS Appendix, appendectomy: Acute appendicitis. Acute serositis. AM:yunier 06/16/2022 MICROSCOPIC DESCRIPTION Slides are reviewed. GROSS DESCRIPTION Received in fixative is one container labeled with the patient's name and designated appendix. The specimen consists of a vermiform appendix measuring 5.5 cm in length and 1 cm in average diameter. The tip appears to have been disrupted. The lumen contains fecaliths. Serial sections do not reveal mass lesions. Remote Encoding Operations Supervisor sections are submitted in two cassettes. / AM:yunier 06/15/2022 TC:2 [facility]: [id number]
[2022-06-14] MEDS: Bupiv/Epi 0.5% Mpf 30 ML Vial (15:27)
[2022-06-14 15:28] LABS: Reflex Troponin-HS? (from REC) Y
--- NOTE | 2022-06-14 15:47 | OP.PCM_ITS ---
Problems Associated Problem List Diagnoses (1) Perforated appendicitis: Report of Operation Date of Procedure: 06/14/22 Pre-Operative Diagnosis: Acute appendicitis Post-Operative Diagnosis: Perforated acute appendicitis, umbilical hernia Surgery/Procedure Performed:: Laparoscopic appendectomy with umbilical hernia repair Specimen's removed: Appendix Drains: TONG to bulb suction Estimated Blood Loss (mL): 10 Description of Procedure: Patient was brought back the operating room and general anesthesia was induced. The abdomen was prepped and draped in usual sterile fashion. A curvilinear incision was marked over the umbilicus. It was injected with local anesthetic. Scalpel was used to make an incision and it was deepened to the hernia which was from the umbilical stalk using sharp dissection. The hernia contents were reduced and the fascia was grasped and elevated. The peritoneum was grasped and divided and initially was used to enter the abdomen and placed the port into the abdomen. The abdomen was insufflated 15 mmHg and then a camera placed into the abdomen. It appeared that there is a purulent material in the pelvis as well as hyperemic bowel surrounding the appendix. Under direct visualization a suprapubic port and left lower quadrant port were placed. The cecum was identified and the small bowel that was encasing the appendix was peeled back revealing a perforated appendix. The base of the appendix was dissected free and a stapler was used to divide the appendix from the colon. Next using Enseal the mesoappendix was taken down and the appendix was placed in the bag. The right lower quadrant was irrigated and suctioned and the staple line appeared healthy and there was no bleeding. The abdomen was irrigated and suctioned dry and then through the left lower quadrant port a 15 [place] drain was placed into the pelvis and then sutured to the skin using 3-0 nylon. Next the abdomen was allowed to desufflate and the appendix and bag were removed. The umbilical hernia was closed with [id number] Vicryl sutures. The skin was then closed with interrupted 4-0 Monocryl suture. Steri-Strips and bandages were applied to all the incisions and the drain was placed to bulb suction. Patient was then awoken and taken to PACU in stable condition. Admit VTE Documentation VTE Mechan Device Prophylaxis: SCD's
--- NOTE | 2022-06-14 16:05 | RAD_ITS ---
INDICATION: hypoxic EXAMINATION/TECHNIQUE: X-RAY - XR Chest 1 View COMPARISON: August 15, [address] of the abdomen and pelvis dated June 14, 2022 FINDINGS: LINES/DEVICES: None. LUNGS: There are few stable streaky opacities within the lower lungs. MEDIASTINUM AND CARDIOVASCULAR STRUCTURES: Cardiac silhouette not enlarged. Central airways and mediastinal contour are unremarkable. BONES AND SOFT TISSUES: There is a stable left sixth rib deformity consistent with a healed fracture. RAD/Chest 1 View (Portable) IMPRESSION: No radiographic evidence of acute cardiopulmonary disease. Electronically Signed: Juliet Velarde MD at 16:37 EST ,
[2022-06-14] MEDS: 0.9% Saline Lock 10 ML Syringe IV (18:50)
[2022-06-14 18:59] LABS: Troponin-I HS 10 pg/mL (3.0-78.0)
[2022-06-15] VITALS (26 sets, daily range): BP systolic 90–147; BP diastolic 66–99; PULSE 61–96; RESP 12–23; TEMP 36.7–36.9; O2SAT 84–97
[2022-06-15 05:51] LABS: Absolute Lymphocyte Count 0.91 X10^3/uL (0.83-4.51); Absolute Neutrophil Count 6.6 X10^3/uL (2.0-7.7); Basophil# 0.02 X10^3/uL; Basophil% 0.2 % (0-1); Hematocrit 46.3 % (40-54); Lymphocyte # 0.91 X10^3/ul (0.83-4.51); Lymphocyte % 10.5 % (19-41); Mean Corp Hgb Conc 32.4 g/dL (32-36); Mean Corpuscular Hgb 28.9 pg (27.0-32.0); Mean Corpuscular Volume 89.2 fL (80-94); Mean Platelet Vol. 10.4 fl (6.2-12.0); Monocyte# 1.02 X10^3/uL; Monocyte% 11.8 % (0-10); NRBC Flagged by Analyzer 0 % (0-5); Neutrophil # 6.63 X10^3/uL (2.7-7.7); Neutrophil % 76.9 % (47-70); Platelet Count 130 K/mm3 (150-450); RBC Distribution Width CV 14.1 % (11.6-14.6); RBC Distribution Width SD 46.1 fl (35.1-43.9); Red Blood Count 5.19 M/mm3 (4.6-6.2); White Blood Count 8.6 K/mm3 (4.4-11.0)
[2022-06-15 06:28] LABS: ALB/GLOB Ratio 0.9 RATIO (0.9-2.4); AST(SGOT) 13 U/L (15-37); Alanine Aminotransfer ALT/SGPT 17 U/L (16-61); Albumin, Serum 2.9 g/dL (3.2-5.0); Alkaline Phosphatase 68 U/L (45-117); Anion Gap 9 (5-15); BUN 20 mg/dL (7-18); BUN/Creat Ratio 21.1 RATIO (10-20); Calcium,Total 8.2 mg/dL (8.5-10.1); Chloride 105 mmol/L (98-107); Cholesterol 130 mg/dL (200); Creatinine, Serum 0.95 mg/dL (0.70-1.30); EST Glomerular Filtration Rate 81 mL/min (>60); Est Glom Filt Rate - Afr Amer 98 mL/min (>60); Estimated Creatinine Clearance 64.67 ml/min; Globulin 3.2 g/dL (2.2-4.2); Glucose 119 mg/dL (74-106); High Density Lipoprotein 57 mg/dL; Potassium 3.7 mmol/L (3.5-5.1); Protein, Total 6.1 g/dL (6.4-8.2); Sodium Level 139 mmol/L (136-145); Thyroid Stim Hormone (TSH) 1.19 uIU/mL (0.358-3.74); Triglycerides 59 mg/dL; Very Low Density Lipoprotein 12 mg/dL (5-40)
--- NOTE | 2022-06-15 08:44 | PCM.PN.SRG ---
Subjective Subjective Patient notes no flatus yet. No nausea or vomiting overnight. Pain is well controlled. Objective Data Objective Data Vital Signs: Vital Signs Temp Pulse Resp BP Pulse Ox O2 Del Method O2 Flow Rate 98.1 F 71 16 121/89 H 92 Room Air 2 06/15/22 00:00 06/15/22 08:00 06/15/22 08:00 06/15/22 08:00 06/15/22 08:00 06/15/22 08:00 06/15/22 05:56 FiO2 95 06/15/22 03:00 Oxygen Flow Rate (L/min) 2 Oxygen Delivery Method Room Air Weight: 230 lb 9.656 oz Body Mass Index (BMI) 31.2 Intake & Output: Intake and Output for Last 24 Hours 06/13/22 06/14/22 06/15/22 23:59 23:59 23:59 Intake Total 2476.50 / 2486.50 139.99 / 139.99 Output Total 70 / 70 Balance 2406.50 / 2416.50 139.99 / 139.99 Lab / Micro Data Result Diagrams: 06/15/22 05:28 06/15/22 05:28 Labs: Laboratory Results - last 24 hr 06/14/22 08:56: WBC 10.4, RBC 5.86, Hgb 17.1 H, Hct 50.5, MCV 86.2, MCH 29.2, MCHC 33.9, RDW Std Deviation 42.3, RDW Coeff of Yeny 13.5, Plt Count 147 L, MPV 10.5, Immature Gran % (Auto) 1.000 H, Neut % (Auto) 84.4 H, Lymph % (Auto) 5.7 L, [place] % (Auto) 8.7, Eos % (Auto) 0.0, Baso % (Auto) 0.2, Absolute Neuts (auto) 8.8 H, Absolute Lymphs (auto) 0.59 L, Nucleated RBC % 0, Differential Comment SCANNED 06/14/22 08:56: PT 14.0, INR 1.1, APTT 30.8 06/14/22 08:56: Sodium 139, Potassium 3.5, Chloride 102, Carbon Dioxide 26.0, Anion Gap 11, BUN 16, Creatinine 1.06, Estim Creat Clear Calc 57.96, Est GFR (MDRD) Af Amer 86, Est GFR (MDRD) Non-Af 71, BUN/Creatinine Ratio 15.1, Glucose 147 H, Calcium 9.1, Total Bilirubin 1.40 H, AST 20, ALT 19, Alkaline Phosphatase 90, Total Protein 7.3, Albumin 4.0, Globulin 3.3, Albumin/Globulin Ratio 1.2 06/14/22 13:25: Urine Color Yellow, Urine Clarity Clear, Urine pH 7.0, Ur Specific [place] 1.010, Urine Protein 30 H, Urine Glucose (UA) Normal, Urine Ketones Negative, Urine Occult Blood 25 H, Urine Nitrite Negative, Urine Bilirubin Negative, Urine Urobilinogen Normal, Ur Leukocyte Esterase 25 H, Urine RBC 0-5 SEEN, Urine WBC 0-5 SEEN, Ur Squamous Epith Cells 0 SEEN, Urine Bacteria 0 SEEN, Urine Mucus 0 SEEN 06/14/22 13:25: Troponin I High Sens 11 06/14/22 13:25: Phosphorus 2.4 L, Magnesium 1.8 06/14/22 18:35: Troponin I High Sens 10 06/15/22 05:28: WBC 8.6, RBC 5.19, Hgb 15.0, Hct 46.3, MCV 89.2, MCH 28.9, MCHC 32.4, RDW Std Deviation 46.1 H, RDW Coeff of Yeny 14.1, Plt Count 130 L, MPV 10.4, Immature Gran % (Auto) 0.600, Neut % (Auto) 76.9 H, Lymph % (Auto) 10.5 L, [place] % (Auto) 11.8 H, Eos % (Auto) 0.0, Baso % (Auto) 0.2, Absolute Neuts (auto) 6.6, Absolute Lymphs (auto) 0.91, Nucleated RBC % 0 06/15/22 05:28: Sodium 139, Potassium 3.7, Chloride 105, Carbon Dioxide 25.0, Anion Gap 9, BUN 20 H, Creatinine 0.95, Estim Creat Clear Calc 64.67, Est GFR (MDRD) Af Amer 98, Est GFR (MDRD) Non-Af 81, BUN/Creatinine Ratio 21.1 H, Glucose 119 H, Calcium 8.2 L, Total Bilirubin 1.30 H, AST 13 L, ALT 17, Alkaline Phosphatase 68, Total Protein 6.1 L, Albumin 2.9 L, Globulin 3.2, Albumin/Globulin Ratio 0.9, Triglycerides 59, Cholesterol 130, LDL Cholesterol 61, VLDL Cholesterol 12, HDL Cholesterol 57, TSH 1.19 Radiography Diagnostic Testing: Radiology Impression Abdomen/Pelvis CT 06/14/22 09:18 IMPRESSION: Acute appendicitis. Atherosclerosis. Colonic diverticulosis. Degenerative changes of the visualized thoracic and lumbar spine. Electronically Signed: Juliet Velarde MD at 12:06 EST , Chest X-Ray 06/14/22 16:05 IMPRESSION: No radiographic evidence of acute cardiopulmonary disease. Electronically Signed: Juliet Velarde MD at 16:37 EST , Physical Exam Const oriented x3 Resp normal respiratory effort GI soft to palpation Palpation: tender RLQ Assessment & Plan Assessment/Plan (1) Perforated appendicitis: PLAN: The patient's TONG appears to be serosanguineous. His white count remains normal. I will await bowel function before starting a diet. Continue pain control and monitoring. The patient has had improved heart rate and oxygenation overnight. A. fib per hospitalist service. Rex Tavares MD Pager: [facility] [address] [place] [address], [address] [place] [address] Office:
--- NOTE | 2022-06-15 09:51 | PN.HOSP_ITS ---
Objective Data Objective Data Vital Signs: Vital Signs Temp Pulse Resp BP Pulse Ox O2 Del Method O2 Flow Rate 98.1 F 71 16 121/89 H 92 Room Air 2 06/15/22 00:00 06/15/22 08:00 06/15/22 08:00 06/15/22 08:00 06/15/22 08:00 06/15/22 08:00 06/15/22 05:56 FiO2 95 06/15/22 03:00 Oxygen Flow Rate (L/min) 2 Oxygen Delivery Method Room Air Weight: 230 lb 9.656 oz Body Mass Index (BMI) 31.2 Intake & Output: Intake and Output for Last 24 Hours 06/13/22 06/14/22 06/15/22 23:59 23:59 23:59 Intake Total 2476.50 / 2486.50 189.99 / 189.99 Output Total 70 / 70 Balance 2406.50 / 2416.50 189.99 / 189.99 Lab / Micro Data Result Diagrams: 06/15/22 05:28 06/15/22 05:28 Labs: Laboratory Results - last 24 hr 06/14/22 08:56: Differential Comment SCANNED 06/14/22 08:56: Sodium 139, Potassium 3.5, Chloride 102, Carbon Dioxide 26.0, Anion Gap 11, BUN 16, Creatinine 1.06, Estim Creat Clear Calc 57.96, Est GFR (MDRD) Af Amer 86, Est GFR (MDRD) Non-Af 71, BUN/Creatinine Ratio 15.1, Glucose 147 H, Calcium 9.1, Total Bilirubin 1.40 H, AST 20, ALT 19, Alkaline Phosphatase 90, Total Protein 7.3, Albumin 4.0, Globulin 3.3, Albumin/Globulin Ratio 1.2 06/14/22 13:25: Urine Color Yellow, Urine Clarity Clear, Urine pH 7.0, Ur Specific [place] 1.010, Urine Protein 30 H, Urine Glucose (UA) Normal, Urine Ketones Negative, Urine Occult Blood 25 H, Urine Nitrite Negative, Urine Bilirubin Negative, Urine Urobilinogen Normal, Ur Leukocyte Esterase 25 H, Urine RBC 0-5 SEEN, Urine WBC 0-5 SEEN, Ur Squamous Epith Cells 0 SEEN, Urine Bacteria 0 SEEN, Urine Mucus 0 SEEN 06/14/22 13:25: Troponin I High Sens 11 01/29/23 13:25: Phosphorus 2.4 L, Magnesium 1.8 06/14/22 18:35: Troponin I High Sens 10 06/15/22 05:28: WBC 8.6, RBC 5.19, Hgb 15.0, Hct 46.3, MCV 89.2, MCH 28.9, MCHC 32.4, RDW Std Deviation 46.1 H, RDW Coeff of Yeny 14.1, Plt Count 130 L, MPV 10.4, Immature Gran % (Auto) 0.600, Neut % (Auto) 76.9 H, Lymph % (Auto) 10.5 L, [place] % (Auto) 11.8 H, Eos % (Auto) 0.0, Baso % (Auto) 0.2, Absolute Neuts (auto) 6.6, Absolute Lymphs (auto) 0.91, Nucleated RBC % 0 06/15/22 05:28: Sodium 139, Potassium 3.7, Chloride 105, Carbon Dioxide 25.0, Anion Gap 9, BUN 20 H, Creatinine 0.95, Estim Creat Clear Calc 64.67, Est GFR (MDRD) Af Amer 98, Est GFR (MDRD) Non-Af 81, BUN/Creatinine Ratio 21.1 H, Glucose 119 H, Calcium 8.2 L, Total Bilirubin 1.30 H, AST 13 L, ALT 17, Alkaline Phosphatase 68, Total Protein 6.1 L, Albumin 2.9 L, Globulin 3.2, Albumin/Globulin Ratio 0.9, Triglycerides 59, Cholesterol 130, LDL Cholesterol 61, VLDL Cholesterol 12, HDL Cholesterol 57, TSH 1.19 Radiography Diagnostic Testing: Radiology Impression Abdomen/Pelvis CT 06/14/22 09:18 IMPRESSION: Acute appendicitis. Atherosclerosis. Colonic diverticulosis. Degenerative changes of the visualized thoracic and lumbar spine. Electronically Signed: Juliet Velarde MD at 12:06 EST , Chest X-Ray 06/14/22 16:05 IMPRESSION: No radiographic evidence of acute cardiopulmonary disease. Electronically Signed: Juliet Velarde MD at 16:37 EST , Physical Exam Narrative Seen and examined. Patient did not have chest pain or shortness of breath. Heart rate is controlled on stitcher tape controlled machine. Physical exam General: Alert, Oriented x3, Cooperative HEENT: Atraumatic, PERRLA, EOMI, Normocephalic Oral: Oral mucosa dry. No Gingival or Mucosal Lesions/ Ulcerations Neck: Supple, No JVD, Negative Carotid Bruits Lungs: Air entry diminished in bilateral lung bases. No crepitation/rhonchi Cardiovascular: A. fib, heart rate controlled, Normal S1, Normal S2, No murmurs Abdomen: Soft, mild postop tenderness. Left lower quadrant drain with serosanguineous drainage. Bowel sounds absent. Ports dressing with a small dry bloody stain. : No renal angle tenderness. No suprapubic tenderness. Extremities: No edema, Capillary Refill Less than 3 Seconds Skin: No rashes, No breakdown Musculoskeletal: No Tenderness to Palpation of Joints or Extremities, bilateral TKR. ROM full. Neurological: Cranial nerves II-XII grossly intact, DTR 2+/4 and Symmetrical, Neuro grossly intact Psych/Mental Status: Flat affect. Assessment & Plan Assessment/Plan (1) Persistent atrial fibrillation: (2) Acute appendicitis: QUALIFIERS: Acute appendicitis type: unspecified acute appendicitis type Qualified Code(s): K35.80 - Unspecified acute appendicitis PLAN: Plan This is a 29-year-old gentleman came to ED for RLQ abdominal pain, nausea and clinical findings and CT scan imaging consistent with acute appendicitis. Patient also found to be in A. fib with RVR. 1. A. fib with RVR precipitated by acute appendicitis with history of PSVT: Patient is being admitted in PCU. Started on Cardizem drip at 10 mg/h after 25 mg IV Cardizem bolus in ED. Patient not on anticoagulation but on baby aspirin and he does not want to be as per last cardiology visit with Dr. Birmingham in October 2021. Last echo August 2021 reported normal LV systolic function EF 60% with mild concentric LVH, PASP 28 mmHg. Mild 1+ eccentric MR. Last pharmacological myocardial perfusion stress test in October 2018 reported normal with preserved EF. K3.5, IV KCl 20 M EQ ordered. Serum magnesium and phosphorus ordered pending. 06/15: Serum magnesium normal and phosphorus levels were low yesterday. IV potassium phosphate was given. Recheck level today. Heart rate is controlled. Patient on IV Cardizem drip and will continue as patient is n.p.o, decreased to 5 mg/h. Electrolytes in normal range. Fasting profile in normal range, LDL 61. TSH 1.19. Hypophosphatemia resolved. 2. Acute appendicitis: CT abdomen individually reviewed and reported dilated appendix with Estridge wall thickening and periappendiceal stranding consistent with appendicitis. Minimal fluid in RLQ. Diverticular from colon. Dr. Tavares is consulted and discussed with him, once the heart rate is controlled patient will be taken for surgery. Patient had IV Zosyn in the ER. 06/15: Discussed with surgeon yesterday. Patient has perforated appendix with intraperitoneal some pus and drain was left. We will keep patient n.p.o. bowel function has not returned. 3. Hypertension: Blood pressure is elevated but patient on Cardizem drip. 06/15: Blood pressure is controlled. 4. Dyslipidemia: Fasting profile in normal range. 5. Chronic degenerative arthritis status post bilateral TKR: Home medication reconciliation done. Discontinue if platelet count drops less than 50,000 or hemoglobin less than 8 g% Living will/advanced directive/end of life care: Patient does have living will or advanced directive. His is power of regulatory attorney for health after discussion of benefits/risks procedures involved with full code, DNR CC arrest and DNR CC, the patient opted for full code. Patient does want artificial life support including intubation, tube feed, ventilator and/chest compression, central venous catheter, vasopressor and DC shock if needed Total time spent in [id number] encounter in discussion of advanced directive 16 minutes. Laboratory Results 06/14/22 18:35: Troponin I High Sens 10 06/15/22 05:28: WBC 8.6, RBC 5.19, Hgb 15.0, Hct 46.3, MCV 89.2, MCH 28.9, MCHC 32.4, RDW Std Deviation 46.1 H, RDW Coeff of Yeny 14.1, Plt Count 130 L, MPV 1 0.4, Immature Gran % (Auto) 0.600, Neut % (Auto) 76.9 H, Lymph % (Auto) 10.5 L, [place] % (Auto) 11.8 H, Eos % (Auto) 0.0, Baso % (Auto) 0.2, Absolute Neuts (auto) 6.6, Absolute Lymphs (auto) 0.91, Nucleated RBC % 0 06/15/22 05:28: Sodium 139, Potassium 3.7, Chloride 105, Carbon Dioxide 25.0, Anion Gap 9, BUN 20 H, Creatinine 0.95, Estim Creat Clear Calc 64.67, Est GFR (MDRD) Af Amer 98, Est GFR (MDRD) Non-Af 81, BUN/Creatinine Ratio 21.1 H, Glucose 119 H, Calcium 8.2 L, Total Bilirubin 1.30 H, AST 13 L, ALT 17, Alkaline Phosphatase 68, Total Protein 6.1 L, Albumin 2.9 L, Globulin 3.2, Albumin/Gl obulin Ratio 0.9, Triglycerides 59, Cholesterol 130, LDL Cholesterol 61, VLDL Cholesterol 12, HDL Cholesterol 57, TSH 1.19 Charges/Coding Visit Charges Inpatient E&M: 13205 Subs Hosp L2
[2022-06-15 10:21] LABS: Magnesium 2.1 mg/dL (1.6-2.6); Phosphorus 3.1 mg/dL (2.5-4.9)
[2022-06-15] MEDS: Aspirin E.C. 81 MG Tablet PO (11:14)
--- NOTE | 2022-06-15 12:45 | CASEMGMT ---
RN?CM?LEAD [employer] ARCHITECT?CM?to room to meet with patient for initial transition planning/care coordination?assessment.?RN?CM?introduced self and role at [facility].? Pt voices understanding and consents to?assessment?at this time.? Pt resting in bed in no distress at this time.? Pt is A/O at this time and answers all questions appropriately.?? Care providers, pharmacy, and demographics verified/updated at this time. PCP: Dr Vilchis Specialists: Dr Birmingham-cardiology Preferred Pharmacy: [facility] Retail Insurance: [id number] Prescription Benefit:?Yes Living Will/HPOA:?Has both LW and HCPOA, who is his , Radha LNOK: , Radha. 5 adult children. Son, Qasim Living Arrangements: [place] w/ on a farm. He states he is independent and walks about 1 1/2 miles/day w/his dogs. Pt and share home mgmt tasks. Pt manages his own medications. Transportation:?Pt states drives self and states no transportation concerns at this time.? also drives. DME: ? Denies using any DME and denies needs.?Has a walker available, but does not use HHC/SNF: No hx of SNF. Had [facility] in the past after knee surgery. He declines wanting HHC. Pt wishes to return home and states has no concerns with going home at time of discharge.?CM?to follow for any discharge planning/needs.? Pt voices no concerns/needs at this time.? Advised pt to ask for?CM?if any questions/concerns/needs arise.? Voices understanding. PLAN:??Home [place] WARNERN?RN?CM
[2022-06-16] VITALS (14 sets, daily range): BP systolic 106–163; BP diastolic 77–114; PULSE 64–101; RESP 14–20; TEMP 36.6–36.9; O2SAT 93–97
[2022-06-16 06:47] LABS: Absolute Lymphocyte Count 0.73 X10^3/uL (0.83-4.51); Absolute Neutrophil Count 4.9 X10^3/uL (2.0-7.7); Basophil# 0.02 X10^3/uL; Basophil% 0.3 % (0-1); Hematocrit 45.9 % (40-54); Hemoglobin 15.2 g/dL (13.0-16.5); Lymphocyte # 0.73 X10^3/ul (0.83-4.51); Lymphocyte % 11.6 % (19-41); Mean Corp Hgb Conc 33.1 g/dL (32-36); Mean Corpuscular Volume 87.4 fL (80-94); Mean Platelet Vol. 10.2 fl (6.2-12.0); Monocyte% 11.1 % (0-10); NRBC Flagged by Analyzer 0 % (0-5); Neutrophil # 4.85 X10^3/uL (2.7-7.7); Neutrophil % 76.7 % (47-70); Platelet Count 134 K/mm3 (150-450); RBC Distribution Width CV 13.9 % (11.6-14.6); RBC Distribution Width SD 44.5 fl (35.1-43.9); Red Blood Count 5.25 M/mm3 (4.6-6.2); White Blood Count 6.3 K/mm3 (4.4-11.0)
--- NOTE | 2022-06-16 07:18 | PCM.PN.SRG ---
Subjective Subjective Patient reports he is passing flatus and tolerating clears with no nausea or vomiting. Objective Data Objective Data Vital Signs: Vital Signs Temp Pulse Resp BP Pulse Ox O2 Del Method O2 Flow Rate 97.8 F 64 20 H 134/99 H 94 Room Air 2 06/16/22 04:00 06/16/22 06:00 06/16/22 05:00 06/16/22 06:00 06/16/22 05:00 06/16/22 05:00 06/16/22 02:00 FiO2 95 06/15/22 03:00 Oxygen Flow Rate (L/min) 2 Oxygen Delivery Method Room Air Weight: 230 lb 9.656 oz Body Mass Index (BMI) 31.2 Intake & Output: Intake and Output for Last 24 Hours 06/14/22 06/15/22 06/16/22 23:59 23:59 23:59 Intake Total 2476.50 / 2486.50 1585.40 / 1585.90 393.25 / 393.25 Output Total 70 / 70 70 / 70 430 / 430 Balance 2406.50 / 2416.50 1515.40 / 1515.90 -36.75 / -36.75 Lab / Micro Data Result Diagrams: 06/16/22 05:10 06/15/22 05:28 Labs: Laboratory Results - last 24 hr 06/15/22 05:28: Phosphorus 3.1, Magnesium 2.1 06/16/22 05:10: WBC 6.3, RBC 5.25, Hgb 15.2, Hct 45.9, MCV 87.4, MCH 29.0, MCHC 33.1, RDW Std Deviation 44.5 H, RDW Coeff of Yeny 13.9, Plt Count 134 L, MPV 10.2, Immature Gran % (Auto) 0.300, Neut % (Auto) 76.7 H, Lymph % (Auto) 11.6 L, [place] % (Auto) 11.1 H, Eos % (Auto) 0.0, Baso % (Auto) 0.3, Absolute Neuts (auto) 4.9, Absolute Lymphs (auto) 0.73 L, Nucleated RBC % 0 Physical Exam Const oriented x3 Resp normal respiratory effort GI soft to palpation and non-tender Assessment & Plan Assessment/Plan (1) Perforated appendicitis: PLAN: Patient's drain continues to have purulent output. The patient's white count is normal so I will stop antibiotics. He tolerated clear liquids and is passing flatus we will advance him to a regular diet. Okay from my standpoint to start p.o. meds to control heart rate. If he is doing well and tolerating a diet his drain output decreases I will remove this afternoon and he may possibly be discharged later today or early tomorrow. Rex Tavares MD Pager: [facility] [address] [place] [address] [address] [place] [address] Office:
[2022-06-16 07:35] LABS: Anion Gap 8 (5-15); BUN 19 mg/dL (7-18); BUN/Creat Ratio 23.5 RATIO (10-20); Calcium,Total 8.4 mg/dL (8.5-10.1); Chloride 103 mmol/L (98-107); Creatinine, Serum 0.81 mg/dL (0.70-1.30); EST Glomerular Filtration Rate 97 mL/min (>60); Est Glom Filt Rate - Afr Amer 117 mL/min (>60); Estimated Creatinine Clearance 75.84 ml/min; Glucose 98 mg/dL (74-106); Potassium 3.6 mmol/L (3.5-5.1); Sodium Level 138 mmol/L (136-145)
[2022-06-16] MEDS: Aspirin E.C. 81 MG Tablet PO (08:58)
[2022-06-16] MEDS: Metoprolol Tartrate 25 MG Tablet PO (10:19)
[2022-06-16] MEDS: 0.9% Saline Lock 10 ML Syringe IV (11:22)
--- NOTE | 2022-06-16 13:29 | PN.HOSP_ITS ---
Subjective Subjective Doing well, no issues overnight. Abdominal pain is much improved after his appendectomy. He is having some drain output appreciate general surgery's help Objective Data Objective Data Vital Signs: Vital Signs Temp Pulse Resp BP Pulse Ox O2 Del Method O2 Flow Rate 98.2 F 96 16 145/90 H 95 Room Air 2 06/16/22 10:00 06/16/22 10:19 06/16/22 10:00 06/16/22 10:19 06/16/22 10:00 06/16/22 13:01 06/16/22 02:00 FiO2 95 06/15/22 03:00 Oxygen Flow Rate (L/min) 2 Oxygen Delivery Method Room Air Weight: 230 lb 9.656 oz Body Mass Index (BMI) 31.2 Intake & Output: Intake and Output for Last 24 Hours 06/15/22 06/16/22 06/17/22 03:59 03:59 03:59 Intake Total 2566.50 / 2576.50 1560.90 / 1565.90 904.75 / 904.75 Output Total 70 / 70 70 / 70 460 / 460 Balance 2496.50 / 2506.50 1490.90 / 1495.90 444.75 / 444.75 Lab / Micro Data Result Diagrams: 06/16/22 05:10 06/16/22 05:10 Labs: Laboratory Results - last 24 hr 06/16/22 05:10: WBC 6.3, RBC 5.25, Hgb 15.2, Hct 45.9, MCV 87.4, MCH 29.0, MCHC 33.1, RDW Std Deviation 44.5 H, RDW Coeff of Yeny 13.9, Plt Count 134 L, MPV 10.2, Immature Gran % (Auto) 0.300, Neut % (Auto) 76.7 H, Lymph % (Auto) 11.6 L, [place] % (Auto) 11.1 H, Eos % (Auto) 0.0, Baso % (Auto) 0.3, Absolute Neuts (auto) 4.9, Absolute Lymphs (auto) 0.73 L, Nucleated RBC % 0 06/16/22 05:10: Sodium 138, Potassium 3.6, Chloride 103, Carbon Dioxide 27.0, Anion Gap 8, BUN 19 H, Creatinine 0.81, Estim Creat Clear Calc 75.84, Est GFR (MDRD) Af Amer 117, Est GFR (MDRD) Non-Af 97, BUN/Creatinine Ratio 23.5 H, Glucose 98, Calcium 8.4 L Physical Exam Narrative General: Alert, Oriented x3, Cooperative, No apparent distress HEENT: Atraumatic, PERRLA, EOMI, Normocephalic Oral: Moist Mucosa Neck: Supple, No JVD Lungs: Clear to auscultation, Normal air movement, No rhonchi, No wheeze, No rales Cardiovascular: Irregular rate and rhythm, Normal S1, Normal S2, No murmurs Abdomen: Soft, Non Tender, Non-Distended, No Hepato-splenomegaly, TONG drain in place, incisions are CDI Extremities: No edema, Capillary Refill Less than 3 Seconds Skin: No rashes, No breakdown Musculoskeletal: No Tenderness to Palpation of Joints or Extremities Neurological: Cranial nerves II-XII grossly intact, Motor Exam 5/5 strength throughout, Sensory exam intact to light touch and pain Psych/Mental Status: Normal Affect, Appropriate Assessment & Plan Assessment/Plan (1) Persistent atrial fibrillation: (2) Acute appendicitis: QUALIFIERS: Acute appendicitis type: unspecified acute appendicitis type Qualified Code(s): K35.80 - Unspecified acute appendicitis PLAN: Plan 1. A. fib with RVR precipitated by acute appendicitis with history of PSVT: Patient is being admitted in PCU. Started on Cardizem drip at 10 mg/h after 25 mg IV Cardizem bolus in ED. Patient not on anticoagulation but on baby aspirin and he does not want to be as per last cardiology visit with Dr. Birmingham in October 2021. Last echo August 2021 reported normal LV systolic function EF 60% with mild concentric LVH, PASP 28 mmHg. Mild 1+ eccentric MR. Last pharmacological myocardial perfusion stress test in October 2018 reported normal with preserved EF. K3.5, IV KCl 20 M EQ ordered. Serum magnesium and phosphorus ordered pending. 06/15: Serum magnesium normal and phosphorus levels were low yesterday. IV potassium phosphate was given. Recheck level today. Heart rate is controlled. Patient on IV Cardizem drip and will continue as patient is n.p.o, decreased to 5 mg/h. Electrolytes in normal range. Fasting profile in normal range, LDL 61. TSH 1.19. Hypophosphatemia resolved. 06/16/2022: Will transition to p.o. metoprolol this is likely situational to his surgery so we will hold off on any anticoagulation, and have him follow-up with cardiology on discharge as an outpatient 2. Acute appendicitis: CT abdomen individually reviewed and reported dilated appendix with Estridge wall thickening and periappendiceal stranding consistent with appendicitis. Minimal fluid in RLQ. Diverticular from colon. Dr. Tavares is consulted and discussed with him, once the heart rate is controlled patient will be taken for surgery. Patient had IV Zosyn in the ER. 06/15: Discussed with surgeon yesterday. Patient has perforated appendix with intraperitoneal some pus and drain was left. We will keep patient n.p.o. bowel function has not returned. 06/16/2022: Appreciate general surgery's assistance, will advance his diet and they may be able to pull his drain today 3. Hypertension: Blood pressure is elevated but patient on Cardizem drip. 06/15: Blood pressure is controlled. 4. Dyslipidemia: Fasting profile in normal range. 5. Chronic degenerative arthritis status post bilateral TKR: Home medication reconciliation done. Delete that DVT: SCDs Charges/Coding Visit Charges Inpatient E&M: 66938 Subs Hosp L2
--- NOTE | 2022-06-16 13:50 | DCINST_ITS ---
Discharge Instructions Diet Discharge Diet: No restrictions Activity Discharge Activity: May Drive and May Shower Dressing / Incision Call your doctor if your incision/area has: Continuous Slow Oozing, Sudden Increased Bleeding, Increased Pain/ Swelling, Increased Redness, Foul Smelling Discharge and Swelling at the incision site Call your doctor if you observe: Fever of 101 or Higher Remove Dressing in: 1 day Cleanse incision/area with: Soap & Water Follow Up Care Please Follow Up With: Rex Tavares MD When: Please call to schedule 2 week follow up appointment. [phone] Test Results: Test results from this visit will be discussed in further detail at your follow- up appointment, if applicable. Discharge Plan Admission Admit Date/Time: 06/14/22 13:25 Attending Provider: David Mott Primary Care Provider: Bhavin Vilchis Consulting Providers: Rex Tavares ; Oswald Agee Discharge Orders/Prescriptions Prescriptions: No Action saw palmetto 1,000 mg capsule 1,000 mg capsule 1,000 mg PO DAILY multivitamin [Daily Multi-Vitamin] tablet 1 tab PO DAILY coenzyme Q10 100 mg tablet extended release 24 hr 100 mg PO DAILY zinc gluconate 50 mg tablet 50 mg PO DAILY lisinopril 10 mg Tablet 5 mg PO DAILY cholecalciferol (vitamin D3) [Vitamin D3] 125 mcg (5,000 unit) Tablet 125 mcg PO DAILY aspirin [Adult Low Dose Aspirin] 81 mg tablet,delayed release (DR/EC) 81 mg PO QDAY Referrals / Follow Up: Bhavin Vilchis MD [Primary Care Provider] -
--- NOTE | 2022-06-16 13:50 | DCINST_ITS ---
Discharge Instructions Diet Discharge Diet: No restrictions Dressing / Incision Call your doctor if your incision/area has: Continuous Slow Oozing, Sudden Increased Bleeding, Increased Pain/ Swelling, Increased Redness, Foul Smelling Discharge and Swelling at the incision site Call your doctor if you observe: Fever of 101 or Higher, Shortness of breath, Dizziness, Fainting spells, Swelling in the ankles, Chest pain and Increased palpitations (irregular heartbeat) Cleanse incision/area with: Soap & Water Follow Up Care Please Follow Up With: Rex Tavares MD Test Results: Test results from this visit will be discussed in further detail at your follow- up appointment, if applicable. Discharge Plan Admission Admit Date/Time: 06/14/22 13:25 Attending Provider: David Mott Primary Care Provider: Bhavin Vilchis Consulting Providers: Rex Tavares ; Oswald Agee Discharge Orders/Prescriptions Prescriptions: New metoprolol tartrate 25 mg Tablet 25 mg PO BID Qty: 60 0RF Continued saw palmetto 1,000 mg capsule 1,000 mg capsule 1,000 mg PO DAILY multivitamin [Daily Multi-Vitamin] tablet 1 tab PO DAILY coenzyme Q10 100 mg tablet extended release 24 hr 100 mg PO DAILY zinc gluconate 50 mg tablet 50 mg PO DAILY lisinopril 10 mg Tablet 5 mg PO DAILY cholecalciferol (vitamin D3) [Vitamin D3] 125 mcg (5,000 unit) Tablet 125 mcg PO DAILY aspirin [Adult Low Dose Aspirin] 81 mg tablet,delayed release (DR/EC) 81 mg PO QDAY Referrals / Follow Up: Rex Tavares MD [Med Staff - Active Staff] - Within 1 Month Bhavin Vilchis MD [Primary Care Provider] - Within 1 Week Disposition Disposition (needs filled in before D/C Order can be placed): Home, Self Care
--- NOTE | 2022-06-16 14:12 | PHA.DC.MC ---
Pharmacy Service has performed discharge medication reconciliation and counseling for this patient. 1. METOPROLOL TARTRATE 25MG PO BID The patient's discharge medication list was reviewed for discrepancies and discrepancies were resolved. Home Medications saw palmetto 1,000 mg capsule 1,000 mg PO DAILY supplement 02/07/18 multivitamin (Daily Multi-Vitamin tablet) 1 tab PO DAILY vitamin 02/22/18 coenzyme Q10 100 mg tablet,extended release 24 hr 100 mg PO DAILY supplement 11/04/21 zinc gluconate 50 mg tablet 50 mg PO DAILY supplement 11/04/21 aspirin 81 mg tablet,delayed release (Adult Low Dose [facility]irin) [facility] cholecalciferol (vitamin D3) 125 mcg (5,000 unit) tablet (Vitamin D3) 125 mcg PO DAILY vitamin 06/14/22 lisinopril 10 mg tablet 5 mg PO DAILY blood pressure 06/14/22 metoprolol tartrate 25 mg tablet 25 mg PO BID #60 tabs 06/16/22 The patient was counseled on the following discharge medications and changes in medications for homegoing were reviewed. The Reason for Use, instructions for use, and potential side effects were reviewed for all new medications. The patient's questions regarding all of their medications were answered. The patient was able to verbally demonstrate an understanding of their discharge medications.
--- NOTE | 2022-06-16 14:12 | CASEMGMT ---
Patient has order for discharge. RN CM in to discuss needs at discharge. Patient denying needs at this time. Patient had no further questions or concerns at this time.
--- NOTE | 2022-06-16 15:43 | PCM.DC.SUM ---
Providers Date of Admission: 06/14/22 Primary Care Physician: Dr. Bhavin Vilchis MD Consultations 06/14/22 17:22 Consult: General Surgery Routine Consulting Provider: Rex Tavares Reason for Consult: acute appendicitis EMERGENT Consult: No MD Notified: Yes Date Notified: 06/14/22 Time Notified: 13:29 Method of Notification: Text Reason For Visit: AFIB WITH RVR WITH APPENDICITIS Diagnosis Discharge Diagnosis (1) Persistent atrial fibrillation: Status: Acute Code(s): I48.19 - Other persistent atrial fibrillation (2) Acute appendicitis: Status: Acute Code(s): K35.80 - Unspecified acute appendicitis Qualifiers: Acute appendicitis type: unspecified acute appendicitis type Qualified Code(s): K35.80 - Unspecified acute appendicitis Plan 1. A. fib with RVR precipitated by acute appendicitis with history of PSVT: Patient is being admitted in PCU. Started on Cardizem drip at 10 mg/h after 25 mg IV Cardizem bolus in ED. Patient not on anticoagulation but on baby aspirin and he does not want to be as per last cardiology visit with Dr. Birmingham in October 2021. Last echo August 2021 reported normal LV systolic function EF 60% with mild concentric LVH, PASP 28 mmHg. Mild 1+ eccentric MR. Last pharmacological myocardial perfusion stress test in October 2018 reported normal with preserved EF. K3.5, IV KCl 20 M EQ ordered. Serum magnesium and phosphorus ordered pending. 06/15: Serum magnesium normal and phosphorus levels were low yesterday. IV potassium phosphate was given. Recheck level today. Heart rate is controlled. Patient on IV Cardizem drip and will continue as patient is n.p.o, decreased to 5 mg/h. Electrolytes in normal range. Fasting profile in normal range, LDL 61. TSH 1.19. Hypophosphatemia resolved. 06/16/2022: Will transition to p.o. metoprolol this is likely situational to his surgery so we will hold off on any anticoagulation, and have him follow-up with cardiology on discharge as an outpatient 2. Acute appendicitis: CT abdomen individually reviewed and reported dilated appendix with Estridge wall thickening and periappendiceal stranding consistent with appendicitis. Minimal fluid in RLQ. Diverticular from colon. Dr. Tavares is consulted and discussed with him, once the heart rate is controlled patient will be taken for surgery. Patient had IV Zosyn in the ER. 06/15: Discussed with surgeon yesterday. Patient has perforated appendix with intraperitoneal some pus and drain was left. We will keep patient n.p.o. bowel function has not returned. 06/16/2022: Appreciate general surgery's assistance, will advance his diet and they may be able to pull his drain today 3. Hypertension: Blood pressure is elevated but patient on Cardizem drip. 06/15: Blood pressure is controlled. 4. Dyslipidemia: Fasting profile in normal range. 5. Chronic degenerative arthritis status post bilateral TKR: Home medication reconciliation done. Delete that DVT: SCDs Medications at Discharge Home Medications saw palmetto 1,000 mg capsule 1,000 mg PO DAILY supplement 02/07/18 multivitamin (Daily Multi-Vitamin tablet) 1 tab PO DAILY vitamin 02/22/18 coenzyme Q10 100 mg tablet,extended release 24 hr 100 mg PO DAILY supplement 11/04/21 zinc gluconate 50 mg tablet 50 mg PO DAILY supplement 11/04/21 aspirin 81 mg tablet,delayed release (Adult Low Dose Aspirin) 81 mg PO QDAY [facility] 06/14/22 cholecalciferol (vitamin D3) 125 mcg (5,000 unit) tablet (Vitamin D3) 125 mcg PO DAILY vitamin 06/14/22 lisinopril 10 mg tablet 5 mg PO DAILY blood pressure 06/14/22 metoprolol tartrate 25 mg tablet 25 mg PO BID #60 tabs 06/16/22 Hospital Course Operations appendectomy Procedures None Summary of Care Provided Minutes Spent on Discharge: 38 Hospital Course: Per HPI: 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 fib status post ablation came to ED for right lower quadrant abdominal pain started 2 days ago on Wednesday night.? He describes abdominal pain as intermittent, colicky and then became persistent and progressive, 10/10 intensity associated with nausea and dry heaving.? He had mild feverish feeling 1 day ago.? He denies vomiting, last bowel movement 2 days ago.? He is passing small flatus but burping a lot. In ED, patient found to have A. fib with RVR.? He states he normally in sinus rhythm or sometimes heavy meal mild prostate A. fib.? He denies chest pain, shortness of breath, dizziness or lightheadedness.? He had ablation in [facility] in [address] Birmingham.? Twelve-lead EKG individually reviewed and is A. fib with RVR at 128 bpm, QTC 455 ms.? Nonspecific ST abnormality. ED vitals heart rate 113, BP 147/89 although it was high 170/108 in triage.? T-max 100.2 Fahrenheit.? No hypoxia or tachypnea. Hospital Course: 1.? A. fib with RVR precipitated by acute appendicitis with history of PSVT: Patient is being admitted in PCU.? Started on Cardizem drip at 10 mg/h after 25 mg IV Cardizem bolus in ED.? ? Patient not on anticoagulation but on baby aspirin and he does not want to be as per last cardiology visit with Dr. Birmingham in October 2021.? Last echo August 2021 reported normal LV systolic function EF 60% with mild concentric LVH, PASP 28 mmHg.? Mild 1+ eccentric MR.? Last pharmacological myocardial perfusion stress test in October 2018 reported normal with preserved EF.? K3.5, IV KCl 20 M EQ ordered.? Serum magnesium and phosphorus ordered pending. 06/15: Serum magnesium normal and phosphorus levels were low yesterday.? IV potassium phosphate was given.? Recheck level today.? Heart rate is controlled.? Patient on IV Cardizem drip and will continue as patient is n.p.o, decreased to 5 mg/h.? Electrolytes in normal range.? Fasting profile in normal range, LDL 61.? TSH 1.19.??Hypophosphatemia resolved. 06/16/2022: Heart rate has been controlled on his p.o. metoprolol, general surgery did pull his drain he has been tolerating a p.o. diet. He is not having any significant pain so it was discussed with him the possibility for discharge today and he expressed understanding of the risk and benefits of going home and would like to go home today. He is not requiring any pain medications will not give him a prescription on discharge. We will continue with his p.o. metoprolol twice daily and have him follow-up with his PCP in 3 to 5 days. He does see cardiology as an outpatient, most recent visit was on 11/04/2021 at which point he continued to state that he did not want anticoagulation and would prefer to remain on aspirin. 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 Acute appendicitis: CT abdomen individually reviewed and reported dilated appendix with Estridge wall thickening and periappendiceal stranding consistent with appendicitis.? Minimal fluid in RLQ.? Diverticular from colon.? Dr. Tavares is consulted and discussed with him, once the heart rate is controlled patient will be taken for surgery.? Patient had IV Zosyn in the ER. 06/15: Discussed with surgeon yesterday.? Patient has perforated appendix with intraperitoneal some pus and drain was left.? We will keep patient n.p.o. bowel function has not returned. 06/16/2022: Appreciate general surgery's assistance, he was able to tolerate and advance diet and his drain was discontinued today, denies any abdominal pain 3.? Hypertension: Blood pressure is elevated but patient on Cardizem drip.? 06/15: Blood pressure is controlled. 4.? Dyslipidemia: Fasting profile in normal range. 5.? Chronic degenerative arthritis status post bilateral TKR: Home medication reconciliation done. Delete that Weight / BMI Weight Weight: 230 lb 9.656 oz Body Mass Index (BMI) 31.2 ABG / Lab / Microbiology Data Result Diagrams: 06/16/22 05:10 06/16/22 05:10 Laboratory: Laboratory Results - last 24 hr 06/16/22 05:10: WBC 6.3, RBC 5.25, Hgb 15.2, Hct 45.9, MCV 87.4, MCH 29.0, MCHC 33.1, RDW Std Deviation 44.5 H, RDW Coeff of Yeny 13.9, Plt Count 134 L, MPV 10.2, Immature Gran % (Auto) 0.300, Neut % (Auto) 76.7 H, Lymph % (Auto) 11.6 L, Hinds % (Auto) 11.1 H, Eos % (Auto) 0.0, Baso % (Auto) 0.3, Absolute Neuts (auto) 4.9, Absolute Lymphs (auto) 0.73 L, Nucleated RBC % 0 06/16/22 05:10: Sodium 138, Potassium 3.6, Chloride 103, Carbon Dioxide 27.0, Anion Gap 8, BUN 19 H, Creatinine 0.81, Estim Creat Clear Calc 75.84, Est GFR (MDRD) Af Amer 117, Est GFR (MDRD) Non-Af 97, BUN/Creatinine Ratio 23.5 H, Glucose 98, Calcium 8.4 L D/C Instructions Discharge Diet: No restrictions Call your doctor if your incision/area has: Continuous Slow Oozing, Sudden Increased Bleeding, Increased Pain/ Swelling, Increased Redness, Foul Smelling Discharge and Swelling at the incision site Call your doctor if you observe: Fever of 101 or Higher, Shortness of breath, Dizziness, Fainting spells, Swelling in the ankles, Chest pain and Increased palpitations (irregular heartbeat) Cleanse incision/area with: Soap & Water Please Follow Up With: Rex Tavares MD When: Please call to schedule 2 week follow up appointment. [phone] Meaningful Use Info Meaningful Use Diagnoses (Choose all that apply): None applicable Discharge Plan Admission Admit Date/Time: 06/14/22 13:25 Attending Provider: David Mott Primary Care Provider: Bhavin Vilchis Consulting Providers: Rex Tavares ; Oswald Agee Discharge Orders/Prescriptions Prescriptions: New metoprolol tartrate 25 mg Tablet 25 mg PO BID Qty: 60 0RF Continued saw palmetto 1,000 mg capsule 1,000 mg capsule 1,000 mg PO DAILY multivitamin [Daily Multi-Vitamin] tablet 1 tab PO DAILY coenzyme Q10 100 mg tablet extended release 24 hr 100 mg PO DAILY zinc gluconate 50 mg tablet 50 mg PO DAILY lisinopril 10 mg Tablet 5 mg PO DAILY cholecalciferol (vitamin D3) [Vitamin D3] 125 mcg (5,000 unit) Tablet 125 mcg PO DAILY aspirin [Adult Low Dose Aspirin] 81 mg tablet,delayed release (DR/EC) 81 mg PO QDAY Referrals / Follow Up: Rex Tavares MD [Med Staff - Active Staff] - Within 1 Month Bhavin Vilchis MD [Primary Care Provider] - Within 1 Week Disposition Disposition (needs filled in before D/C Order can be placed): Home, Self Care Charges/Coding Visit Charges Inpatient E&M: 07130 Disch Hosp >30min
== END 2022-06-16 15:43 | disposition home or self-care (01) | DRG 339 ==
LOC: ED 13:15 → SDC 13:27 → ACINP 13:49 → ED 14:00 → PCU 14:41
PROVIDERS: Surgery; Admitting Provider Internal Medicine; Emergency Provider Emergency Medicine; PCP Family Medicine; Visit Provider Family Medicine
PROC: 0DTJ4ZZ Resection of Appendix, Percutaneous Endoscopic Approach (ICD-10-PCS; CPT 44970; principal; 2022-06-14 14:15)
DX: K35.32 Acute appendicitis with perforation, localized peritonitis, and gangrene, without abscess (principal); I48.19 Other persistent atrial fibrillation; E83.39 Other disorders of phosphorus metabolism; E78.5 Hyperlipidemia, unspecified; I10 Essential (primary) hypertension; K42.9 Umbilical hernia without obstruction or gangrene; K57.30 Diverticulosis of large intestine without perforation or abscess without bleeding; Z79.82 Long term (current) use of aspirin; Z96.653 Presence of artificial knee joint, bilateral; Z79.899 Other long term (current) drug therapy; Z87.891 Personal history of nicotine dependence
CPT/HCPCS: 36415; 71045; 74177; 80048; 80053; 80061; 81001; 83735; 84100; 84443; 84484; 85025; 85610; 85730; 88304; 93005; 94668; 94762; 97166; 97802; 99283; J7030; J7050; Q9967; A4216; C1760; J2405

== ENCOUNTER → 2022-08-04 | Outpatient (CLI) | payer MEDICARE, SELFPAY ==
[2022-08-04 18:03] LABS: Hematocrit 43.2 % (40-54); Hemoglobin 14.2 g/dL (13.0-16.5); Mean Corp Hgb Conc 32.9 g/dL (32-36); Mean Corpuscular Hgb 28.3 pg (27.0-32.0); Mean Corpuscular Volume 86.2 fL (80-94); Mean Platelet Vol. 10.2 fl (6.2-12.0); POSITIVE COUNT YES; POSITIVE MORPHOLOGY YES; Platelet Count 214 K/mm3 (150-450); RBC Distribution Width CV 13.8 % (11.6-14.6); RBC Distribution Width SD 43.6 fl (35.1-43.9); Red Blood Count 5.01 M/mm3 (4.6-6.2); White Blood Count 4.1 K/mm3 (4.4-11.0)
[2022-08-04 18:04] LABS: Differential Indicated MANUAL DIFF
[2022-08-04 18:34] LABS: Eosinophil 2 % (0-5); Lymphocyte 70 % (19-41); Monocyte 8 % (0-10); Neutrophil-Band 4 % (0-5); Neutrophil-Segmented 16 % (47-70); Total Cells Counted 100 (MANUAL DIFF)
[2022-08-04 18:35] LABS: Platelet Estimate ADEQUATE (ADEQ); Red Cell Morphology NORM C+C NORMAL (NORM C&C)
[2022-08-04 18:37] LABS: Absolute Lymphocyte Count 2.87 X10^3/uL (0.83-4.51); Absolute Neutrophil Count 0.8 X10^3/uL (2.0-7.7)
[2022-08-04 20:34] LABS: ALB/GLOB Ratio 0.9 RATIO (0.9-2.4); AST(SGOT) 19 U/L (15-37); Alanine Aminotransfer ALT/SGPT 24 U/L (16-61); Albumin, Serum 3.3 g/dL (3.2-5.0); Alkaline Phosphatase 116 U/L (45-117); Anion Gap 10 (5-15); BUN 18 mg/dL (7-18); BUN/Creat Ratio 21.3 RATIO (10-20); Calcium,Total 8.7 mg/dL (8.5-10.1); Chloride 104 mmol/L (98-107); Cholesterol 159 mg/dL (200); Creatinine, Serum 0.84 mg/dL (0.70-1.30); EST Glomerular Filtration Rate 92 mL/min (>60); Est Glom Filt Rate - Afr Amer 112 mL/min (>60); Globulin 3.6 g/dL (2.2-4.2); Glucose 78 mg/dL (74-106); High Density Lipoprotein 32 mg/dL; Potassium 3.9 mmol/L (3.5-5.1); Protein, Total 6.9 g/dL (6.4-8.2); Sodium Level 138 mmol/L (136-145); Thyroid Stim Hormone (TSH) 3.57 uIU/mL (0.358-3.74); Triglycerides 78 mg/dL; Very Low Density Lipoprotein 16 mg/dL (5-40)
[2022-08-06 09:43] LABS: Pathologist Review Reviewed
== END | disposition home or self-care (01) ==
LOC: MFPLAB 15:59
PROVIDERS: PCP Family Medicine; Referring Provider Family Medicine; Visit Provider Family Medicine
DX: I10 Essential (primary) hypertension (principal)
CPT/HCPCS: 36415; 80053; 80061; 83735; 84443; 85025

== ENCOUNTER → 2022-08-13 | Outpatient (CLI) | payer MEDICARE, SELFPAY ==
--- NOTE | 2022-08-13 08:26 | US_ITS ---
EXAM: Ultrasound abdomen, RUQ. HISTORY: Possible mass COMPARISON: CT abdomen and pelvis June 14, 2022. LIMITATIONS: None. LIVER: Normal. PORTAL VEINS: Normal. GALLBLADDER Size: Normal. Stones/sludge: None. Wall thickness: Normal measuring 2 mm. Pericholecystic fluid: None. Sonographic Abdul sign: Negative. EXTRAHEPATIC BILE DUCTS: The partially visualized common duct is normal in caliber measuring 5 mm. PANCREAS: Partially visualized. The visualized portion is normal. RIGHT KIDNEY: Normal. OTHER: None. CONCLUSION: No abnormal mass identified. No gallstones. Electronically Signed: Sergio Mccarthy MD at 18:58 EDT , US/Abdomen Limited IMPRESSION: undefined
== END | disposition home or self-care (01) ==
LOC: US 08:25
PROVIDERS: PCP Family Medicine; Referring Provider Family Medicine; Visit Provider Family Medicine
DX: R22.2 Localized swelling, mass and lump, trunk (principal)
CPT/HCPCS: 76705

== ENCOUNTER → 2023-02-03 | Outpatient (CLI) | payer MEDICARE, SELFPAY ==
[2023-02-03 15:11] LABS: Bacteria 0 SEEN /hpf (None Seen); Mucous, Urine 0 SEEN /hpf (<or=2+); Red Blood Cells-Urine 0 SEEN /hpf (0-5); Squamous Epithelial Cells - UA 0 SEEN /hpf (0-5); White Blood Cells 0 SEEN /hpf (0-5)
[2023-02-03 17:38] LABS: Absolute Lymphocyte Count 1.85 X10^3/uL (0.83-4.51); Absolute Neutrophil Count 3.3 X10^3/uL (2.0-7.7); Basophil# 0.02 X10^3/uL; Basophil% 0.3 % (0-1); Eosinophil# 0.13 X10^3/uL; Eosinophils% 2.2 % (0-5); Hematocrit 47.6 % (40-54); Hemoglobin 15.7 g/dL (13.0-16.5); Lymphocyte # 1.85 X10^3/ul (0.83-4.51); Lymphocyte % 31.4 % (19-41); Mean Corpuscular Hgb 28.7 pg (27.0-32.0); Mean Platelet Vol. 10.1 fl (6.2-12.0); Monocyte# 0.55 X10^3/uL; Monocyte% 9.3 % (0-10); NRBC Flagged by Analyzer 0 % (0-5); Neutrophil # 3.29 X10^3/uL (2.7-7.7); Platelet Count 176 K/mm3 (150-450); RBC Distribution Width CV 13.9 % (11.6-14.6); RBC Distribution Width SD 44.6 fl (35.1-43.9); Red Blood Count 5.47 M/mm3 (4.6-6.2); White Blood Count 5.9 K/mm3 (4.4-11.0)
[2023-02-03 17:45] LABS: Color, Urine Yellow (Yellow); Glucose, Dipstick Normal (Normal); Ketone-Dipstick Negative (Negative); Leukocyte Esterase-Dipstick Negative /ul (Negative); Nitrite-Dipstick Negative (Negative); Occult Blood-Urine Negative /ul (Negative); Protein-Dipstick Negative (Negative); Urine Bilirubin Dipstick Negative (Negative); Urine Clarity Clear (Clear); Urine Urobilinogen 1 mg/dl (Normal)
[2023-02-03 18:15] LABS: ALB/GLOB Ratio 1.2 RATIO (0.9-2.4); AST(SGOT) 24 U/L (15-37); Alanine Aminotransfer ALT/SGPT 34 U/L (16-61); Albumin, Serum 3.9 g/dL (3.2-5.0); Alkaline Phosphatase 102 U/L (45-117); Anion Gap 6 (5-15); BUN 21 mg/dL (7-18); BUN/Creat Ratio 21.1 RATIO (10-20); Calcium,Total 8.9 mg/dL (8.5-10.1); Chloride 106 mmol/L (98-107); Cholesterol 190 mg/dL (200); EST Glomerular Filtration Rate 76 mL/min (>60); Est Glom Filt Rate - Afr Amer 92 mL/min (>60); Globulin 3.2 g/dL (2.2-4.2); Glucose 87 mg/dL (74-106); High Density Lipoprotein 55 mg/dL; Magnesium 2.2 mg/dL (1.6-2.6); Potassium 4.1 mmol/L (3.5-5.1); Protein, Total 7.1 g/dL (6.4-8.2); Sodium Level 138 mmol/L (136-145); Thyroid Stim Hormone (TSH) 4.37 uIU/mL (0.358-3.74); Triglycerides 74 mg/dL; Very Low Density Lipoprotein 15 mg/dL (5-40)
[2023-02-05 20:56] LABS: T4 Free Direct 1.05 ng/dL (0.76-1.46)
== END | disposition home or self-care (01) ==
LOC: MFPLAB 15:06
PROVIDERS: PCP Family Medicine; Visit Provider Family Medicine
DX: I10 Essential (primary) hypertension (principal)
CPT/HCPCS: 36415; 80053; 80061; 81001; 83735; 84432; 84439; 84443; 85025; 86376; 86800

== ENCOUNTER → 2023-08-04 | Outpatient (CLI) | payer MEDICARE, SELFPAY ==
[2023-08-04 17:42] LABS: Absolute Lymphocyte Count 1.74 X10^3/uL (0.83-4.51); Basophil# 0.01 X10^3/uL; Basophil% 0.2 % (0-1); Hematocrit 48.6 % (40-54); Hemoglobin 15.9 g/dL (13.0-16.5); Lymphocyte # 1.74 X10^3/ul (0.83-4.51); Mean Corp Hgb Conc 32.7 g/dL (32-36); Mean Corpuscular Hgb 28.9 pg (27.0-32.0); Mean Corpuscular Volume 88.2 fL (80-94); Mean Platelet Vol. 10.4 fl (6.2-12.0); Monocyte# 0.67 X10^3/uL; Monocyte% 12.3 % (0-10); NRBC Flagged by Analyzer 0 % (0-5); Neutrophil # 2.97 X10^3/uL (2.7-7.7); Neutrophil % 54.6 % (47-70); Platelet Count 156 K/mm3 (150-450); RBC Distribution Width CV 13.8 % (11.6-14.6); RBC Distribution Width SD 44.2 fl (35.1-43.9); Red Blood Count 5.51 M/mm3 (4.6-6.2); White Blood Count 5.4 K/mm3 (4.4-11.0)
[2023-08-04 18:24] LABS: ALB/GLOB Ratio 1.2 RATIO (0.9-2.4); AST(SGOT) 26 U/L (15-37); Alanine Aminotransfer ALT/SGPT 21 U/L (16-61); Albumin, Serum 3.8 g/dL (3.2-5.0); Alkaline Phosphatase 108 U/L (45-117); Anion Gap 6 (5-15); BUN 18 mg/dL (7-18); BUN/Creat Ratio 17.1 RATIO (10-20); Calcium,Total 9.1 mg/dL (8.5-10.1); Chloride 106 mmol/L (98-107); Creatinine, Serum 1.05 mg/dL (0.70-1.30); EST Glomerular Filtration Rate 71 mL/min (>60); Est Glom Filt Rate - Afr Amer 86 mL/min (>60); Globulin 3.2 g/dL (2.2-4.2); Glucose 91 mg/dL (74-106); Magnesium 2.2 mg/dL (1.6-2.6); Potassium 4.5 mmol/L (3.5-5.1); Sodium Level 139 mmol/L (136-145); T4 Free Direct 0.98 ng/dL (0.76-1.46); Thyroid Stim Hormone (TSH) 4.48 uIU/mL (0.358-3.74)
== END | disposition home or self-care (01) ==
LOC: MFPLAB 15:06
PROVIDERS: PCP Family Medicine; Visit Provider Family Medicine
DX: I48.0 Paroxysmal atrial fibrillation (principal); E03.8 Other specified hypothyroidism
CPT/HCPCS: 36415; 80053; 83735; 84439; 84443; 85025

== ENCOUNTER → 2024-05-04 | Outpatient (CLI) | payer MEDICARE, SELFPAY ==
[2024-05-04 17:37] LABS: Absolute Lymphocyte Count 1.86 X10^3/uL (0.83-4.51); Absolute Neutrophil Count 3.5 X10^3/uL (2.0-7.7); Basophil# 0.01 X10^3/uL; Basophil% 0.2 % (0-1); Hematocrit 49.6 % (40-54); Hemoglobin 15.9 g/dL (13.0-16.5); Lymphocyte # 1.86 X10^3/ul (0.83-4.51); Lymphocyte % 30.2 % (19-41); Mean Corp Hgb Conc 32.1 g/dL (32-36); Mean Corpuscular Hgb 28.3 pg (27.0-32.0); Mean Corpuscular Volume 88.4 fL (80-94); Mean Platelet Vol. 10.5 fl (6.2-12.0); Monocyte# 0.78 X10^3/uL; Monocyte% 12.7 % (0-10); NRBC Flagged by Analyzer 0 % (0-5); Neutrophil # 3.46 X10^3/uL (2.7-7.7); Neutrophil % 56.1 % (47-70); Platelet Count 174 K/mm3 (150-450); RBC Distribution Width CV 13.9 % (11.6-14.6); RBC Distribution Width SD 44.7 fl (35.1-43.9); Red Blood Count 5.61 M/mm3 (4.6-6.2); White Blood Count 6.2 K/mm3 (4.4-11.0)
[2024-05-04 17:59] LABS: ALB/GLOB Ratio 1.2 RATIO (0.9-2.4); AST(SGOT) 22 U/L (15-37); Alanine Aminotransfer ALT/SGPT 25 U/L (16-61); Albumin, Serum 3.8 g/dL (3.2-5.0); Alkaline Phosphatase 104 U/L (45-117); Anion Gap 4 (5-15); BUN 18 mg/dL (7-18); BUN/Creat Ratio 17.5 RATIO (10-20); Calcium,Total 9.2 mg/dL (8.5-10.1); Chloride 106 mmol/L (98-107); Creatinine, Serum 1.03 mg/dL (0.70-1.30); EST Glomerular Filtration Rate 73 mL/min (>60); Est Glom Filt Rate - Afr Amer 88 mL/min (>60); Globulin 3.2 g/dL (2.2-4.2); Glucose 88 mg/dL (74-106); Magnesium 2.2 mg/dL (1.6-2.6); Potassium 4.7 mmol/L (3.5-5.1); Sodium Level 138 mmol/L (136-145); T4 Free Direct 1.05 ng/dL (0.76-1.46)
== END | disposition home or self-care (01) ==
LOC: MFPLAB 14:47
PROVIDERS: PCP Family Medicine; Referring Provider Family Medicine; Visit Provider Family Medicine
DX: I48.0 Paroxysmal atrial fibrillation (principal); E03.8 Other specified hypothyroidism
CPT/HCPCS: 36415; 80053; 83735; 84439; 84443; 85025

== ENCOUNTER → 2024-05-19 | Outpatient (CLI) | payer MEDICARE, SELFPAY ==
--- NOTE | 2024-05-19 13:59 | ECHOD_ITS ---
Version 2 Reason For Study: SOB Procedure This was a 2D Doppler, Color Flow transthoracic echocardiogram. Exam performed in department. Left Ventricle Normal LV size. Mild concentric left ventricular hypertrophy. Left ventricular systolic function is normal. The left ventricular ejection fraction is 60 %. No regional wall motion abnormalities noted. Right Ventricle Normal RV size. Normal systolic function. Atria The left atrium is mildly enlarged. Normal right atrium. Mitral Valve Normal mitral valve. Mild (1+) eccentric mitral valve insufficiency. Tricuspid Valve Normal tricuspid valve. Mild (1+) tricuspid valve insufficiency. Pulmonary artery systolic pressure is 32 mmHg. Aortic Valve Trisinus/trileaflet aortic valve. Moderate focal aortic valve thickening. Mild (1+) aortic valve insufficiency. Great Vessels Mildly dilated aortic root. The pulmonary artery is normal size. Inferior vena cava collapse with respiration. Pericardium/Pleural No pericardial effusion. MMode/2D Measurements & Calculations LVIDd: 3.9 cm IVSd: 1.2 cm asc Aorta Diam: 3.9 cm LVIDs: 2.0 cm LVPWd: 1.3 cm RVDd: 3.9 cm FS: 47.4 % LAV(MOD-bp): 65.8 ml LVAd ap4: 21.2 cm2 SV(MOD-sp4): 28.5 ml LAV(MOD-bp) Indexed: 29.7 ml/m2 LVLd ap4: 7.3 cm SI(MOD-sp4): 12.9 ml/m2 LAV(MOD-sp2): 60.3 ml EDV(MOD-sp4): 50.8 ml LAV(MOD-sp4): 60.8 ml EDV(sp4-el): 52.3 ml LVAs ap4: 12.2 cm2 LVLs ap4: 6.1 cm ESV(MOD-sp4): 22.2 ml ESV(sp4-el): 20.7 ml EF(MOD-sp4): 56.2 % EF(sp4-el): 60.4 % SV(sp4-el): 31.6 ml LA dimension(2D): 3.9 cm LA A4 area: 21.7 cm2 RA A4 area: 18.5 cm2 TAPSE: 2.0 cm Doppler Measurements & Calculations MV E max jose: 78.0 cm/sec Lat Peak E' Jose: 14.7 cm/sec Med Peak E' Jsoe: 8.1 cm/sec E/E' lat: 5.3 E/E' med: 9.6 Ao V2 max: 129.0 cm/sec AI max jose: 472.9 cm/sec LV V1 max: 93.8 cm/sec Ao max P.7 mmHg AI max P.5 mmHg LV V1 max P.5 mmHg Ao V2 mean: 104.7 cm/sec Ao mean P.6 mmHg AI dec slope: 281.2 cm/sec2 Ao V2 VTI: 25.1 cm AI P1/2t: 492.6 msec PA V2 max: 89.7 cm/sec TR max jose: 266.6 cm/sec TR max P.4 mmHg ECHO/Echo Complete Interpretation Summary Normal LV size. Left ventricular systolic function is normal. The left ventricular ejection fraction is 60 %. The left atrium is mildly enlarged. Mild concentric left ventricular hypertrophy. Ordering Physician: Bhavin Vilchis Referring Physician: Bhavin Vilchis Performed By: Kenyatta Malave, NETTIE, RVT
== END | disposition home or self-care (01) ==
PROVIDERS: PCP Family Medicine; Referring Provider Family Medicine; Visit Provider Family Medicine
DX: R06.02 Shortness of breath (principal)
CPT/HCPCS: 93306

== ENCOUNTER → 2024-11-10 | Outpatient (CLI) | payer MEDICARE, SELFPAY ==
[2024-11-10 10:22] LABS: Bacteria 0 SEEN /hpf (None Seen); Mucous, Urine 0 SEEN /hpf (<or=2+); Red Blood Cells-Urine 0 SEEN /hpf (0-5)
[2024-11-10 12:41] LABS: Absolute Lymphocyte Count 1.58 X10^3/uL (0.83-4.51); Absolute Neutrophil Count 2.9 X10^3/uL (2.0-7.7); Basophil# 0.02 X10^3/uL; Basophil% 0.4 % (0-1); Hematocrit 49.4 % (40-54); Hemoglobin 16.5 g/dL (13.0-16.5); Lymphocyte # 1.58 X10^3/ul (0.83-4.51); Lymphocyte % 30.4 % (19-41); Mean Corp Hgb Conc 33.4 g/dL (32-36); Mean Corpuscular Hgb 28.6 pg (27.0-32.0); Mean Corpuscular Volume 85.6 fL (80-94); Mean Platelet Vol. 10.7 fl (6.2-12.0); Monocyte# 0.65 X10^3/uL; Monocyte% 12.5 % (0-10); NRBC Flagged by Analyzer 0 % (0-5); Neutrophil # 2.88 X10^3/uL (2.7-7.7); Neutrophil % 55.5 % (47-70); Platelet Count 159 K/mm3 (150-450); RBC Distribution Width SD 43.7 fl (35.1-43.9); Red Blood Count 5.77 M/mm3 (4.6-6.2); White Blood Count 5.2 K/mm3 (4.4-11.0)
[2024-11-10 12:49] LABS: Color, Urine Yellow (Yellow); Glucose, Dipstick Normal (Normal); Ketone-Dipstick Negative (Negative); Leukocyte Esterase-Dipstick 25 /ul (Negative); Nitrite-Dipstick Negative (Negative); Occult Blood-Urine Negative /ul (Negative); Protein-Dipstick 15 mg/dl (Negative); Urine Bilirubin Dipstick Negative (Negative); Urine Clarity Clear (Clear); Urine Urobilinogen Normal (Normal); Urine pH 6.5 (5.0 - 8.0)
[2024-11-10 12:59] LABS: Squamous Epithelial Cells - UA 0-5 SEEN /hpf (0-5); White Blood Cells 0-5 SEEN /hpf (0-5)
[2024-11-10 13:23] LABS: ALB/GLOB Ratio 1.7 RATIO (0.9-2.4); AST(SGOT) 22 U/L (<=37); Alanine Aminotransfer ALT/SGPT 15 U/L (<=46); Albumin, Serum 4.4 g/dL (3.4-4.8); Alkaline Phosphatase 95 U/L (40-129); Anion Gap 12 (5-15); BUN 17 mg/dL (4-19); BUN/Creat Ratio 18.5 RATIO (10-20); Calcium,Total 9.3 mg/dL (7.6-11.0); Carbon Dioxide 23.9 mmol/L (21.0-32.0); Chloride 102 mmol/L (98-108); Cholesterol 210 mg/dL (<=200); Creatinine, Serum 0.94 mg/dL (0.70-1.20); EST Glomerular Filtration Rate 79 (>60); Globulin 2.5 g/dL (2.2-4.2); Glucose 92 mg/dL (70-99); High Density Lipoprotein 52 mg/dL; Low Density Lipoprotein Calc. 144 mg/dL; Potassium 4.3 mmol/L (3.3-5.1); Protein, Total 6.9 g/dL (5.9-8.4); Sodium Level 137 mmol/L (133-145); Total Bilirubin 0.77 mg/dL (0.00-1.30); Triglycerides 72 mg/dL; Very Low Density Lipoprotein 14 mg/dL (5-40); cholesterol:hdl ratio screen 4.07
== END | disposition home or self-care (01) ==
LOC: MTLAB 10:08
PROVIDERS: PCP Family Medicine; Referring Provider Family Medicine; Visit Provider Family Medicine
DX: I10 Essential (primary) hypertension (principal); E03.8 Other specified hypothyroidism
CPT/HCPCS: 36415; 80053; 80061; 81001; 83735; 84439; 84443; 85025

== ENCOUNTER → 2025-05-16 | Outpatient (CLI) | payer MEDICARE, SELFPAY ==
[2025-05-16 11:32] LABS: Mucous, Urine 0 SEEN /hpf (<or=2+); Squamous Epithelial Cells - UA 0 SEEN /hpf (0-5)
--- NOTE | 2025-05-16 12:17 | RAD_ITS ---
PROCEDURE: ANKLE MIN 3 VIEWS 05/16/2025 REASON FOR EXAM: PAIN TECHNIQUE: Procedure Code: RADANK Modality: DX Procedure: ANKLE MIN 3 VIEWS Laterality: Right COMPARISON: None FINDINGS: Bones: The bones are diffusely demineralized. No acute fracture, evidence of contour abnormalities in the distal fibula and anterior distal tibia consistent with old healed fractures. Prominent calcaneal heel spurs are noted. Joints: Narrowing of the ankle mortise without subchondral change Soft tissues: No suspicious soft tissue swelling or foreign body, there are vascular calcifications and calcifications adjacent to the calcaneal spurs suggesting chronic Achilles tendinitis and chronic plantar fasciitis. Other: RAD/Ankle min 3 Views IMPRESSION: Demineralization of the osseous structures without acute fracture or suspicious osseous lesion Calcaneal spurs with evidence of chronic Achilles tendinitis and plantar fascii tis Narrowing of the ankle mortise without subchondral changes No suspicious soft tissue swelling Reading Location: [id number]
[2025-05-16 17:29] LABS: Hematocrit 48.6 % (40-54); Hemoglobin 16.4 g/dL (13.0-16.5); Immature Granulocytes Count 0.040 X10^3/uL (0.0-0.0); Mean Corp Hgb Conc 33.7 g/dL (32-36); Mean Corpuscular Volume 86.9 fL (80-94); Mean Platelet Vol. 10.0 fl (6.2-12.0); NRBC Flagged by Analyzer 0 % (0-5); Platelet Count 157 K/mm3 (150-450); RBC Distribution Width CV 14.6 % (11.6-14.6); RBC Distribution Width SD 46.3 fl (35.1-43.9); Red Blood Count 5.59 M/mm3 (4.6-6.2); White Blood Count 5.8 K/mm3 (4.4-11.0)
[2025-05-16 17:56] LABS: AST(SGOT) 30 U/L (<=37); Alanine Aminotransfer ALT/SGPT 19 U/L (<=46); Albumin, Serum 4.4 g/dL (3.4-4.8); Alkaline Phosphatase 150 U/L (40-129); Anion Gap 11 (7-18); BUN 20 mg/dL (4-19); BUN/Creat Ratio 17.8 RATIO (10-20); Calcium,Total 9.5 mg/dL (7.6-11.0); Carbon Dioxide 26.3 mmol/L (20.0-29.0); Chloride 101 mmol/L (96-106); Globulin 2.5 g/dL (2.2-4.2); Glucose 80 mg/dL (70-99); Magnesium 2.4 mg/dL (1.5-2.2); Potassium 4.4 mmol/L (3.5-5.1)
[2025-05-16 18:20] LABS: Color, Urine Straw (Yellow); Glucose, Dipstick Normal (Normal); Ketone-Dipstick Negative (Negative); Leukocyte Esterase-Dipstick Negative /ul (Negative); Nitrite-Dipstick Negative (Negative); Occult Blood-Urine Negative /ul (Negative); Protein-Dipstick Negative (Negative); Specific Gravity, Urine 1.010 (1.002-1.030); Urine Bilirubin Dipstick Negative (Negative)
[2025-05-16 19:20] LABS: Red Blood Cells-Urine 0-5 SEEN /hpf (0-5)
== END | disposition home or self-care (01) ==
PROVIDERS: PCP Family Medicine; Referring Provider Family Medicine; Visit Provider Family Medicine
DX: M25.571 Pain in right ankle and joints of right foot (principal); E03.8 Other specified hypothyroidism; I10 Essential (primary) hypertension
CPT/HCPCS: 36415; 73610; 80053; 81001; 83735; 84439; 84443; 85025